=== PATIENT | male | born 1985 | race Caucasian/White ===

== ENCOUNTER 2021-07-20 23:13 | Inpatient (IN) | payer OTHER, SELFPAY ==
--- NOTE | 2021-07-20 23:22 | XRR_ITS ---
The PROCEDURE INFORMATION: Exam: XR Chest Exam date and time: 07/20/2021 11:22 PM Age: 36 years old Clinical indication: Device placement; Ett placement (vent status); Patient HX: Check for et and og placement S/P intubation upon EMS arrival. No further history. ; Additional info: Post intubation, AMS TECHNIQUE: Imaging protocol: XR of the chest. Views: 1 view. COMPARISON: No relevant prior studies available. FINDINGS: Tubes, catheters and devices: There is an endotracheal tube present, with distal tip 3 cm above the yaz. There is an enteric tube present with distal portion in the stomach. Lungs: Low lung volumes bilaterally. Nonspecific ground-glass infiltrates noted bilaterally, left worse than right. Pleural spaces: No pleural effusion. No pneumothorax. Heart/Mediastinum: No cardiomegaly. Bones/joints: Minimal scoliosis of the thoracic spine. XR/XR chest 1V portable [id number] IMPRESSION: 1. There is an endotracheal tube present, with distal tip 3 cm above the yaz. 2. There is an enteric tube present with distal portion in the stomach. 3. Low lung volumes bilaterally. Nonspecific ground-glass infiltrates noted bilaterally, left worse than right.
--- NOTE | 2021-07-20 23:22 | CTR_ITS ---
PROCEDURE INFORMATION: Exam: CT Head Without Contrast Exam date and time: 07/20/2021 11:22 PM Age: 36 years old Clinical indication: Altered mental status/memory loss; Patient HX: Possible drug od. Unresponsive to narcan. Intubated upon EMS arrival to er. Supposed history of seizure disorder. ; Additional info: AMS TECHNIQUE: Imaging protocol: Computed tomography of the head without contrast. Radiation optimization: All CT scans at this facility use at least one of these dose optimization techniques: automated exposure control; mA and/or kV adjustment per patient size (includes targeted exams where dose is matched to clinical indication); or iterative reconstruction. COMPARISON: No relevant prior studies available. RADIATION DOSE METRICS: Total DLP (mGy-cm): 786.21 FINDINGS: Brain: Unremarkable. No hemorrhage. No significant white matter disease. No edema. Cerebral ventricles: No ventriculomegaly. Paranasal sinuses: Mild mucoperiosteal thickening in the left maxillary and bilateral ethmoid sinuses. No air-fluid levels in the sinuses. Mastoid air cells: Unremarkable as visualized. No mastoid effusion. Bones/joints: Unremarkable. No acute fracture. Soft tissues: Unremarkable. CT/CT head wo con* [id number] IMPRESSION: No acute intracranial abnormality demonstrated.
--- NOTE | 2021-07-20 23:22 | CTR_ITS ---
PROCEDURE INFORMATION: Exam: CT Cervical Spine Without Contrast Exam date and time: 07/20/2021 11:22 PM Age: 36 years old Clinical indication: Other: AMS; Patient HX: Possible drug od. Unresponsive to narcan. Intubated upon EMS arrival to er. Supposed history of seizure disorder. ; Additional info: AMS, ? trauma TECHNIQUE: Imaging protocol: Computed tomography images of the cervical spine without contrast. Radiation optimization: All CT scans at this facility use at least one of these dose optimization techniques: automated exposure control; mA and/or kV adjustment per patient size (includes targeted exams where dose is matched to clinical indication); or iterative reconstruction. COMPARISON: CT head wo con* [id number] 07/21/2021 12:15 AM RADIATION DOSE METRICS: Total DLP (mGy-cm): 1113.86 FINDINGS: Bones/joints: Vertebral body heights are preserved. No compression fractures are noted. Vertebral alignment is physiologic. Discs/Spinal canal/Neural foramina: Disc heights are preserved. No significant intervertebral disc narrowing. No spinal canal or neural foraminal stenosis. Lungs: The lung apices are unremarkable. Pleural spaces: No apical pneumothorax demonstrated. Soft tissues: The soft tissues appear unremarkable. CT/CT cervical spin wo con* [id number] IMPRESSION: No acute abnormality of the cervical spine demonstrated.
[2021-07-20 23:24] VITALS: BP 199/115; PULSE 110; RESP 35; O2SAT 95; BMI 36.9
[2021-07-20] MEDS: succinylcholine 20 mg/mL SDV 10mL IVP (23:25)
[2021-07-20] MEDS: vecuronium 10 mg SDV IVP (23:30)
[2021-07-20 23:41] LABS: Basophils # 0.1 10^3/uL (0.0-0.1); Basophils % 0.3 %; Eosinophils # 0.1 10^3/uL (0.0-0.8); Eosinophils % 0.4 %; Hematocrit 46.7 % (42.0-52.0); Hemoglobin 14.9 g/dL (11.7-16.6); Lymphocytes % 10.6 %; Mean Corpuscular HGB Conc 31.9 g/dL (30.0-36.0); Mean Corpuscular Hemoglobin 31.3 pg (28.0-34.0); Mean Corpuscular Volume 98.1 fl (80-94); Mean Platelet Volume 10.8 fL (7.4-10.4); Monocytes # 0.8 10^3/uL (0.2-0.9); Monocytes % 2.9 %; Neutrophils # 24.25 10^3/uL (1.8-7.7); Neutrophils % 84.9 %; Nucleated Red Blood Cells % 0 %; Platelet Count 319 10^3/cmm (130-400); Red Blood Count 4.76 10^6/uL (4.1-5.3); Red Cell Distribution Width 12.9 % (12.1-15.1); White Blood Count 28.6 10^3/uL (4.0-10.0)
[2021-07-20] MEDS: propofol 1,000 MG/100 ML INJ 6.8 MG IV (23:50)
[2021-07-20] MEDS: midazolam 1 mg/mL INJ 2 mL 4 MG IVP (23:52)
[2021-07-20 23:53] VITALS: PULSE 113; RESP 16; O2SAT 100
[2021-07-20 23:57] LABS: Troponin(5th) Baseline 75 ng/L (0-15)
[2021-07-21] VITALS (71 sets, daily range): BP systolic 104–177; BP diastolic 54–106; PULSE 82–146; RESP 13–23; TEMP 37.2–38; O2SAT 95–100
[2021-07-21 00:05] LABS: Lactate (Lactic Acid level) 4.8 mmol/L (0.5-2.2)
--- NOTE | 2021-07-21 00:17 | W.ED.NEUROSD ---
HPI - Neuro Symptoms/Deficit General: Chief Complaint: Neuro Symptoms/Deficit Stated Complaint: od Time Seen by Provider: 07/20/21 23:15 History of Present Illness: 36-year-old male presenting by ambulance unresponsive to the ER. They were called out to the home for an alleged overdose. EMS found the patient with a pulse ox of 51% on room air, not responsive. He had pinpoint pupils and was given intranasal Narcan, after which he began to arouse to some degree. OPA was placed with significant improvement in his oxygenation on nonrebreather. The patient remained unresponsive for most of the trip here, but with stable vital signs. Here, he is not responding to noxious stimuli, eyes are closed, pupils are pinpoint. Review of Systems General: Reports: ROS unobtainable due to medical condition and ROS unobtainable due to mental status Physical Exam Const: EXAM LIMITATIONS: altered mental status GENERAL APPEARANCE: ill appearing and appears older than stated age ORIENTATION/CONSCIOUSNESS: Yes patient obtunded HENMT: COMMON NORMALS: normocephalic, atraumatic and Normal external nose present HEAD & SCALP: normocephalic and atraumatic FACE & SINUS: normal facial exam NOSE: Normal external nose present and Normal nares present MOUTH: Normal oral and palatal mucosa present Eye: COMMON NORMALS: conjunctivae normal GENERAL EYE: decreased light reflex CONJUNCTIVA: Yes conjunctivae normal PUPIL: Yes Pinpoint pupils DIRECT OPHTHALMOSCOPY: Yes decreased light reflex Chest: COMMONS NORMALS: normal inspection of the chest and normal palpation of entire chest wall Resp: EFFORT & INSPECTION: Yes abnormal respiratory pattern, Yes respiratory distress and Yes retractions AUSCULTATION: rhonchi and diminished lung sounds Cardio: COMMON NORMALS: regular rhythm RATE: tachycardic RHYTHM: regular rhythm GI: COMMON NORMALS: Normal to inspection, nondistended, normoactive bowel sounds present and Soft to palpation PALPATION: Yes Soft to palpation Extremity: COMMON NORMALS: capillary refill normal Neuro: KRYSTLE COMA SCALE: document GCS findings [place] coma scale eye opening: None Krystle coma scale verbal response: Sounds [place] coma scale motor response: Normal flexion [place] coma scale total score: 7 SENSORIUM/ORIENTATION: Yes obtunded Skin: COMMON NORMALS: no wounds Procedures Intubation Time out performed: No sedative: Etomidate Mg Given: 30 paralytic: Succinylcholine Mg Given: 200 Laryngoscope: Christina (4) ET Tube Size: 8 ET Tube Uncuffed: No Tube Secured Depth (cm): 24 Tube Secured Location: lips Tube Placement Confirmation: visualized tube passing through cords, equal breath sounds bilaterally and confirmation by capnometry Patient Tolerated Procedure: well and no complications Intubation Complications: none Course Consultations: Consultation #1: rhina Time: : Vital Signs: Vital signs: Vital Signs Pulse Rate 100 07/21/21 00:12 Respiratory Rate 16 07/21/21 03:08 Blood Pressure 143/84 07/21/21 00:12 Pulse Oximetry 100 07/21/21 03:08 MDM - Neuro Symptoms/Deficit Medical Decision Making 36-year-old obtunded male, essentially minimally responsive on presentation. Pinpoint pupils. 1 mg of Narcan given. Following this, pupils widened, but the patient did not begin to respond appropriately. In fact, he began to shake and posture to some degree. Oxygen sats were 100% on nonrebreather oxygenation, but the patient was not maintaining his airway well at all. He was intubated using RSI technique emergently with no complication. Urine drug screen is positive for opiates. Benzodiazepines may be due to Versed given for sedation postintubation. Patient on a ventilator, sedated with propofol. CT of the head is negative. CT of the C-spine is negative. Chest x-ray shows ET tube in proper position with bilateral basilar groundglass infiltrates. COVID-19 PCR is pending. White blood cell count is 28.6. BMP is normal. Lactic is elevated at 4.8. His first troponin was 75 with an increase of 2 hours of 60. This is likely due to anoxic injury versus true cardiac ischemia due to coronary disease, as the patient has essentially a normal EKG ST segment daniels. Blood gas taken well over an hour after intubation and still shows respiratory acidosis with a PCO2 of 48. It was likely much higher on arrival. He will go to the ICU. Current blood pressure 143/84, heart rate 90 sinus, saturations 99% on the ventilator. Lab Data : 07/20/21 23:26 07/20/21 23:53 Radiology Impressions Cervical Spine CT 07/20/21 23:22 IMPRESSION: No acute abnormality of the cervical spine demonstrated. Chest X-Ray 07/20/21 23:22 IMPRESSION: 1. There is an endotracheal tube present, with distal tip 3 cm above the yaz. 2. There is an enteric tube present with distal portion in the stomach. 3. Low lung volumes bilaterally. Nonspecific ground-glass infiltrates noted bilaterally, left worse than right. Head CT 07/20/21 23: IMPRESSION: No acute intracranial abnormality demonstrated. Laboratory Results WBC 28.6 10^3/uL (4.0-10.0) H 07/20/21 23: RBC 4.76 10^6/uL (4.1-5.3) 07/20/21 23: Hgb 14.9 g/dL (11.7-16.6) 07/20/21 23: Hct 46.7 % (42.0-52.0) 07/20/21 23: MCV 98.1 fl (80-94) H 07/20/21 23: MCH 31.3 pg (28.0-34.0) 07/20/21 23: MCHC 31.9 g/dL (30.0-36.0) 07/20/21 23: RDW 12.9 % (12.1-15.1) 07/20/21 23: Plt Count 319 10^3/cmm (130-400) 07/20/21 23: MPV 10.8 fL (7.4-10.4) H 07/20/21 23: Neut % (Auto) 84.9 % 07/20/21 23: Lymph % (Auto) 10.6 % 07/20/21 23: [place] % (Auto) 2.9 % 07/20/21 23: Eos % (Auto) 0.4 % 07/20/21 23: Baso % (Auto) 0.3 % 07/20/21 23: Neut # (Auto) 24.25 10^3/uL (1.8-7.7) H 07/20/21 23: Lymph # (Auto) 3.0 10^3/uL (0.8-4.8) 07/20/21 23: [place] # (Auto) 0.8 10^3/uL (0.2-0.9) 07/20/21 23: Eos # (Auto) 0.1 10^3/uL (0.0-0.8) 07/20/21 23:26 Baso # (Auto) 0.1 10^3/uL (0.0-0.1) 07/20/21 23:26 Nucleated RBC % (auto) 0 % 07/20/21 23:26 Nucleated RBCs # 0.0 /100WBC 07/20/21 23:26 ESR 13 mm/hr (0-10) H 07/20/21 23:53 Specimen Type Arterial 07/21/21 01:06 Sample Site Radial, right 07/21/21 01:06 ABG pH 7.34 (7.35-7.45) L 07/21/21 01:06 ABG pCO2 48.0 mmHg (35-45) H 07/21/21 01:06 ABG pO2 164.0 mmHg (80.0-100.0) H 07/21/21 01:06 ABG HCO3 25.8 mmol/L (22-26) 07/21/21 01:06 ABG Base Excess -0.6 mmol/L (-2.0-2.0) 07/21/21 01:06 Rudy Test Pos 07/21/21 01:06 Hematocrit 42.6 % (42-52) 07/21/21 01:06 O2 Delivery Device Vent 07/21/21 01:06 FiO2 80.0 % 07/21/21 01:06 PEEP 8.0 cmH20 07/21/21 01:06 Grocery Sacker ID Rosemarya 07/21/21 01:06 Sodium 139 mmol/L (136-145) 07/20/21 23:53 Potassium 4.3 mmol/L (3.5-5.1) 07/20/21 23:53 Chloride 106 mmol/L (98-107) 07/20/21 23:53 Carbon Dioxide 24 mmol/L (22-29) 07/20/21 23:53 Anion Gap 13.3 (5-19) 07/20/21 23:53 BUN 12 mg/dL (6-20) 07/20/21 23:53 Creatinine 1.1 mg/dL (0.7-1.2) 07/20/21 23:53 GFR Calculation 75.3 mL/min (90-130) L 07/20/21 23:53 Glucose 93 mg/dL (65-115) 07/20/21 23:53 Calculated Osmolality 287 mOsm/kg (285-295) 07/20/21 23:53 Lactate 4.8 mmol/L (0.5-2.2) H* 07/20/21 23:28 Calcium 8.9 mg/dL (8.5-10.5) 07/20/21 23:53 Total Bilirubin 0.2 mg/dL (0.15-1.2) 07/20/21 23:53 AST 38 U/L (0-40) 07/20/21 23:53 ALT 36 U/L (0-41) 07/20/21 23:53 Alkaline Phosphatase 78 IU/L (40-130) 07/20/21 23:53 Troponin T Baseline 75 ng/L (0-15) H 07/20/21 23:28 Troponin T 120 Minute 135.2 ng/L (0-15) H 07/21/21 01:20 Delta Troponin T 60.2 ABS# (0-10) H* 07/21/21 01:20 C-Reactive Protein 41.7 mg/L (0.0-4.9) H 07/20/21 23:53 Total Protein 7.0 g/dL (6.6-8.7) 07/20/21 23:53 Albumin 4.2 g/dL (3.5-5.2) 07/20/21 23:53 Globulin 2.8 g/dL (1.3-4.6) 07/20/21 23:53 Procalcitonin 0.17 ng/mL (0-0.5) 07/20/21 23:53 TSH 1.54 uIU/mL (0.27-4.20) 07/20/21 23:53 Urine Color Yellow (Yellow) 07/20/21 23:54 Urine Appearance Clear (CLEAR) 07/20/21 23:54 Urine pH 6 (5-7) 07/20/21 23:54 Ur Specific [place] 1.010 (1.005-1.030) 07/20/21 23:54 Urine Protein 2+ (Negative) H 07/20/21 23:54 Urine Glucose (UA) 2+ (Normal) H 07/20/21 23:54 Urine Ketones Negative (Negative) 07/20/21 23:54 Urine Blood 2+ (Negative) H 07/20/21 23:54 Urine Nitrate Negative (Negative) 07/20/21 23:54 Urine Bilirubin Neg (Negative) 07/20/21 23:54 Urine Urobilinogen Norm mg/dL (Negative) 07/20/21 23:54 Ur Leukocyte Esterase Negative (Negative) 07/20/21 23:54 Urine RBC 10-15 /hpf (0-2) H 07/20/21 23:54 Urine WBC 15-25 /hpf (0-5) H 07/20/21 23:54 Ur Squamous Epith Cells 0-4 /hpf (0-5) H 07/20/21 23:54 Amorphous Sediment 2+ /hpf 07/20/21 23:54 Urine Bacteria 1+ /hpf (NONE) H 07/20/21 23:54 Hyaline Casts 0-4 /lpf H 07/20/21 23:54 Coarse Granular Casts 0-4 /lpf H 07/20/21 23:54 Urine Mucus 1+ /hpf 07/20/21 23:54 Salicylates < 0.3 mg/dL (3-10) L 07/20/21 23:53 Urine Opiates Screen Positive ng/mL (Negative) H 07/20/21 23:54 Acetaminophen < 5.0 ug/mL (10-30) L 07/20/21 23:53 Ur Barbiturates Screen Negative ng/mL (Negative) 07/20/21 23:54 Ur Phencyclidine Scrn Negative ng/mL (Negative) 07/20/21 23:54 Ur Amphetamines Screen Negative ng/mL (Negative) 07/20/21 23:54 U Benzodiazepines Scrn Positive ng/mL (Negative) H 07/20/21 23:54 Urine Cocaine Screen Negative ng/mL (Negative) 07/20/21 23:54 U Marijuana (THC) Screen Negative ng/mL (Negative) 07/20/21 23:54 Ethyl Alcohol < 10 mg/dL (0-10) 07/20/21 23:53 Serum Ketones Negative (Negative) 07/20/21 23:53 Coronavirus 229E (PCR) Not detected (NOT DETECT) 07/21/21 00:03 SARS-CoV-2 (PCR) Not detected (NOT DETECT) 07/21/21 00:03 Critical Care Time Critical Care Time: Critical Care Time: Yes Total Critical Care Time: 36 Attestation: This case had a high probability of a clinically significant, sudden, or life threatening deterioration of this patient's condition which required my full and direct attention, intervention and personal management. This is independent of procedures performed including intubation. Discharge Plan Discharge Patient Disposition: Admitted As Inpatient Admit Provider: Maikol Remdond Clinical Impression: Acute hypoxemic respiratory failure, Narcotic overdose Condition: Stable Coding Level of Care Code ED [employer] Manager for g Fwd Exam Comprehensive
[2021-07-21 00:25] LABS: Alanine Aminotransferase 36 U/L (0-41); Albumin Level 4.2 g/dL (3.5-5.2); Alkaline Phosphatase 78 IU/L (40-130); Aspartate Amino Transferase 38 U/L (0-40); Blood Urea Nitrogen 12 mg/dL (6-20); Calcium 8.9 mg/dL (8.5-10.5); Carbon Dioxide 24 mmol/L (22-29); Chloride 106 mmol/L (98-107); Globulin 2.8 g/dL (1.3-4.6); Glomerular Filtration Rate 75.3 mL/min (90-130); Glucose 93 mg/dL (65-115); Osmolality Calculated 287 mOsm/kg (285-295); Sodium 139 mmol/L (136-145); Thyroid Stimulating Hormone 1.54 uIU/mL (0.27-4.20); Total Bilirubin 0.2 mg/dL (0.15-1.2)
[2021-07-21 00:34] LABS: Acetaminophen < 5.0 ug/mL (10-30); Alcohol Level < 10 mg/dL (0-10); Salicylate < 0.3 mg/dL (3-10)
[2021-07-21 00:40] LABS: Ketone (Acetest) Serum Negative (Negative)
[2021-07-21 00:40] LABS: Add Urine Microscopic? YES; Bilirubin Urine Neg (Negative); Blood Urine 2+ (Negative); Glucose Urine UA 2+ (Normal); Ketones Urine Negative (Negative); Leukocyte Esterase Urine Negative (Negative); Nitrate Urine Negative (Negative); Protein Urine 2+ (Negative); Urine Appearance Clear (CLEAR); Urine Color Yellow (Yellow); Urobilinogen Urine Norm (Negative); pH Urine 6 (5-7)
[2021-07-21 00:49] LABS: Anion Gap 13.3 (5-19); Potassium 4.3 mmol/L (3.5-5.1)
[2021-07-21 00:51] LABS: Amphetamines Screen Urine Negative (Negative); Barbiturates Screen Urine Negative (Negative); Benzodiazepines Screen Urine Positive (Negative); Cocaine Screen Urine Negative (Negative); Opiate Screen Urine Positive (Negative); PCP Screen Urine Negative (Negative); THC Screen Urine Negative (Negative)
[2021-07-21 01:00] LABS: Squamous Epithelial Cell Urine 0-4 /hpf (0-5); WBC Urine 15-25 /hpf (0-5)
[2021-07-21 01:01] LABS: Add Urine Culture? Yes; Amorphous Sediment Urine 2+ /hpf; Bacteria Urine 1+ /hpf; Coarse Granular Casts Urine 0-4 /lpf; Hyaline Casts Urine 0-4 /lpf; Mucus Urine 1+ /hpf
[2021-07-21 01:20] LABS: ABG PH Result 7.34 (7.35-7.45); Arterial Blood Gas Hematocrit 42.6 % (42-52); Base Excess ABG -0.6 mmol/L (-2.0-2.0); Blood Gas Allen Test Pos; Blood Gas Sample Site Radial, right; Blood Gas Sample Type Arterial; HCO3 ABG 25.8 mmol/L (22-26); Oxygen Device VENT
[2021-07-21 02:07] LABS: Troponin 5 2HR 135.2 ng/L (0-15); Troponin 5 2HR Delta 60.2 ABS# (0-10)
[2021-07-21] MEDS: sodium chloride 0.9% 1,000 ML 999 ML IV ×2 (02:09→04:20)
[2021-07-21 02:24] LABS: Adenovirus Not Detected (NOT DETECT); Chlamydia Pneumoniae Not Detected (NOT DETECT); Coronavirus 229E,HKU1,NL63,OC4 Not Detected (NOT DETECT); Human Metapneumovirus Not Detected (NOT DETECT); Human Rhinovirus/Enterovirus Not Detected (NOT DETECT); Influenza A Not Detected (NOT DETECT); Influenza A H1 Not Detected (NOT DETECT); Influenza A H1-2009 Not Detected (NOT DETECT); Influenza A H3 Not Detected (NOT DETECT); Influenza B Not Detected (NOT DETECT); Mycoplasma Pneumoniae Not Detected (NOT DETECT); Parainfluenza Virus Type 1 Not Detected (NOT DETECT); Parainfluenza Virus Type 2 Not Detected (NOT DETECT); Parainfluenza Virus Type 3 Not Detected (NOT DETECT); Parainfluenza Virus Type 4 Not Detected (NOT DETECT); Respiratory Syncytial Virus A Not Detected (NOT DETECT); Respiratory Syncytial Virus B Not Detected (NOT DETECT); SARS-COV-2 Not Detected (NOT DETECT)
[2021-07-21] MEDS: piperacillin-tazobactam 4.5 GM in sodium chloride 0.9% (plus) 50 ML IV (02:29)
--- NOTE | 2021-07-21 02:53 | P.HP_ITS ---
Providers/Chief Complaint Chief Complaint: od History of Present Illness Jaquan Aguilar is a 36 year old male no significant past medical history, who presents to [facility] for concerns for opiate overdose. Currently patient is intubated, sedated, mechanical ventilation, no family at bedside for further history taking. According to ER staff EMS was called out to patient's home, due to unresponsiveness, alleged overdose, when EMS arrived, patient was nonresponsive, pulse ox was 51% on room air, pinpoint pupils, given intranasal Narcan, he did arouse to some degree, was placed on nonrebreather, and transported to [facility], vitals were stable during transport, in the emergency room, he was not responding to noxious stimuli, pupils remain pinpoint, given 1 mg of Narcan, pupils widened, did not begin to respond, he started to shake diffusely, was subsequently intubated by ER physician. WBC 28.6, neutrophilia, lactate of 1.8, baseline troponin 75, with a delta troponin of 60, positive for opiates, and benzos. Unable to obtain a medical history, surgical history, social history due to intubation and sedation Review of Systems General: Reports: ROS unobtainable due to mental status Vitals/I&O/Wt Last Vital Signs Pulse 100 07/21/21 00:12 Resp 17 07/21/21 00:12 BP 143/84 07/21/21 00:12 Pulse Ox 100 07/21/21 00:12 Weight last 48 hrs Weight 113.398 kg Weight 113.398 kg Physical Exam Const: COMMON NORMALS: no acute distress HENMT: COMMON NORMALS: normocephalic HEAD & SCALP: normocephalic Eye: COMMON NORMALS: no scleral icterus OTHER: Pupils are pinpoint bilaterally, minimally reactive to light Neck/C-Spine: COMMON NORMALS: no JVD Lymph: LYMPHATIC: no lymphadenopathy noted Chest: COMMONS NORMALS: normal inspection of the chest Resp: COMMON NORMALS: normal respiratory effort, No retractions, No use of accessory muscles and clear to auscultation bilaterally AUSCULTATION: clear to auscultation bilaterally Cardio: COMMON NORMALS: regular rate, regular rhythm, S1 normal heart sound present and S2 normal heart sound present RATE: regular rate RHYTHM: regular rhythm HEART SOUNDS: S1 normal heart sound present and S2 normal heart sound present GI: COMMON NORMALS: Normal to inspection, nondistended, normoactive bowel sounds present, Soft to palpation, non-tender, No hepatosplenomegaly present, no masses and no bruits PALPATION: Yes Soft to palpation and Yes No hepatos plenomegaly present Extremity: COMMON NORMALS: capillary refill normal, no clubbing, cyanosis or edema, no calf tenderness and no pedal edema Neuro: OTHER: Intubated, sedated Urinary Catheter Management: Leon: Cath Placed During This Visit: yes Urinary Catheter Date of Insertion: 07/21/21 Urinary Catheter Time of Insertion: 23:40 Data : 07/20/21 23:26 07/20/21 23:53 A&P Assessment and plan (1) Acute hypoxemic respiratory failure: Status: Acute (2) Narcotic overdose: Status: Acute (3) Acute encephalopathy: Status: Acute (4) NSTEMI (non-ST elevated myocardial infarction): Status: Acute (5) Leukocytosis: Status: Acute (6) Lactic acidosis: Status: Acute Plan Acute hypoxic respiratory failure secondary to opiate overdose -Intubated, sedated -Minimize tidal volume, minimize FiO2 -Continue propofol, fentanyl for sedation -Spontaneous breathing trial -Monitor mentation closely -Zosyn for aspiration pneumonia -Full code -Heparin for DVT prophylaxis -Protonix for GI prophylaxis Acute encephalopathy -Secondary to opiate overdose, hypoxia -We will need to monitor closely for anoxic brain injury, as patient was down for some period of time his pulse ox on arrival was 71% Lactic acidosis -Likely secondary to opiate overdose, IV fluids NSTEMI -Baseline troponin 75, 120-minute 135.2, down to 60.2 -No acute ST-T wave changes on EKG -Likely secondary opioid overdose -However cannot rule out underlying cardiac etiology -Aspirin, statin, heparin drip -Cardiac echo ERICKA, CPK, IV fluids Attestations Medical Necessity Statement*: Patient requires hospitalization, inpatient, greater than 2 midnights, for opiate overdose, altered mental status, acute respiratory failure Critical Care Time: 55 Coding Level of Care Code Acute Operations Leader for [facility] Manas Diagnoses Acute hypoxemic respiratory failure J96.01 Narcotic overdose T40.601A Acute encephalopathy G93.40 NSTEMI (non-ST elevated myocardial infarction) I21.4 Leukocytosis D72.829 Lactic acidosis E87.2
[2021-07-21 03:23] LABS: Erythrocyte Sedimentation Rate 13 mm/hr (0-10)
[2021-07-21 03:46] LABS: C Reactive Protein 41.7 mg/L (0.0-4.9)
[2021-07-21 03:54] LABS: Procalcitonin 0.17 ng/mL (0-0.5)
--- NOTE | 2021-07-21 05:22 | ECG_ITS ---
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 Measurements Intervals [place] Rate: 87 P: 55 UT: 140 QRS: 49 QRSD: 110 T: 13 QT: 395 QTc: 477 Interpretive Statements SINUS RHYTHM No previous ECG available for comparison Electronically Signed On 07-23-2021 9:04:11 HOSPICE CARE CONSULTANT by Abdiaziz Farr M.D. [email or web address]
--- NOTE | 2021-07-21 05:55 | PC.NURSE ---
Upon moving patient to ICU , Pt. began waking from sedation. Pt. started on fentanyl, with 100mcg bolus from bag per Dr. Farrell.
--- NOTE | 2021-07-21 06:00 | PC.NURSE ---
Admission Note Patient brought to ICU 5 by TOBACCO ROLLER and RT. Patient's eyes are open and he is coughing against the ventilator. Increased sedation gtt's at this time. Patient does not respond to commands or painful stimuli. All vital signs are stable at this time. No s/s distress are noted.
[2021-07-21] MEDS: dextrose 5%-sod chloride 0.9% 1,000 ML 75 ML IV (06:11)
[2021-07-21] MEDS: pantoprazole 40 mg SDV IVP (06:13)
[2021-07-21 06:34] LABS: ABG PCO2 42.3 mmHg (35-45); ABG PH Result 7.41 (7.35-7.45); Arterial Blood Gas Hematocrit 41.1 % (42-52); Base Excess ABG 1.8 mmol/L (-2.0-2.0); Blood Gas Allen Test Pos; Blood Gas Operator Identificat JB; Blood Gas Sample Site Radial, right; Blood Gas Sample Type Arterial; HCO3 ABG 26.8 mmol/L (22-26); Oxygen Device VENT
[2021-07-21] MEDS: ipratropium-albuterol 3 mL Neb INHALATION ×2 (08:31→20:19)
[2021-07-21] MEDS: aspirin 81 mg EC Tablet PO (08:33)
[2021-07-21] MEDS: piperacillin-tazobactam 3.375 GM in sodium chloride 0.9% (plus) 50 ML IV ×2 (08:33→16:18)
[2021-07-21] MEDS: propofol 1,000 MG/100 ML INJ 13.61 MG IV (08:38)
[2021-07-21 11:04] LABS: Basophils % 0.3 %; Eosinophils # 0.2 10^3/uL (0.0-0.8); Eosinophils % 1.9 %; Hematocrit 39.8 % (42.0-52.0); Hemoglobin 12.7 g/dL (11.7-16.6); Lymphocytes # 1.8 10^3/uL (0.8-4.8); Lymphocytes % 21.9 %; Mean Corpuscular HGB Conc 31.9 g/dL (30.0-36.0); Mean Corpuscular Hemoglobin 32.1 pg (28.0-34.0); Mean Corpuscular Volume 100.5 fl (80-94); Mean Platelet Volume 11.1 fL (7.4-10.4); Monocytes # 0.7 10^3/uL (0.2-0.9); Monocytes % 8.1 %; Neutrophils # 5.38 10^3/uL (1.8-7.7); Neutrophils % 67.4 %; Nucleated Red Blood Cells % 0 %; Platelet Count 219 10^3/cmm (130-400); Red Blood Count 3.96 10^6/uL (4.1-5.3); Red Cell Distribution Width 13.1 % (12.1-15.1)
[2021-07-21 11:20] LABS: Troponin 5 6HR 49.25 ng/L (0-15)
[2021-07-21 11:28] LABS: Anion Gap 14.7 (5-19); Blood Urea Nitrogen 8 mg/dL (6-20); Calcium 8.1 mg/dL (8.5-10.5); Carbon Dioxide 24 mmol/L (22-29); Chloride 107 mmol/L (98-107); Glomerular Filtration Rate 151.6 mL/min (90-130); Glucose 99 mg/dL (65-115); Osmolality Calculated 292 mOsm/kg (285-295); Potassium 3.7 mmol/L (3.5-5.1); Sodium 142 mmol/L (136-145)
[2021-07-21 11:51] LABS: Troponin 5 6HR Delta -25.5 ng/L (0-12)
[2021-07-21 11:54] LABS: Creatine Phosphokinase 384 U/L (39-308)
[2021-07-21] MEDS: enoxaparin 120 mg/0.8 mL Syringe 110 MG SUBCUT (14:43)
[2021-07-21] MEDS: naloxone 0.4 mg/ml SDV IVP (14:43)
[2021-07-21 19:38] LABS: Prolactin 28.84 ng/mL (4.0-15.2)
[2021-07-21] MEDS: atorvastatin 40 mg Tablet PO (20:43)
[2021-07-22] VITALS (49 sets, daily range): BP systolic 111–182; BP diastolic 63–111; PULSE 88–140; RESP 11–32; TEMP 36.7–38; O2SAT 91–100
--- NOTE | 2021-07-22 00:30 | PC.NURSE ---
Change in Condition Patient noted be diaphoretic upon assessment, heart rate in the 150's. Called hospitalist, gave verbal orders to restart Propofol drip and titrate as needed.
[2021-07-22 00:40] LABS: Glucose Point of Care 182 mg/dL (70-110)
[2021-07-22] MEDS: enoxaparin 120 mg/0.8 mL Syringe 110 MG SUBCUT (01:29)
[2021-07-22] MEDS: piperacillin-tazobactam 3.375 GM in sodium chloride 0.9% (plus) 50 ML IV ×2 (01:29→07:30)
[2021-07-22 04:46] LABS: Basophils % 0.1 %; Hematocrit 38.5 % (42.0-52.0); Hemoglobin 12.6 g/dL (11.7-16.6); Lymphocytes # 0.9 10^3/uL (0.8-4.8); Lymphocytes % 8.1 %; Mean Corpuscular HGB Conc 32.7 g/dL (30.0-36.0); Mean Corpuscular Hemoglobin 31.4 pg (28.0-34.0); Mean Platelet Volume 11.1 fL (7.4-10.4); Monocytes # 0.5 10^3/uL (0.2-0.9); Monocytes % 4.9 %; Neutrophils # 9.43 10^3/uL (1.8-7.7); Neutrophils % 86.5 %; Nucleated Red Blood Cells % 0 %; Platelet Count 226 10^3/cmm (130-400); Red Blood Count 4.01 10^6/uL (4.1-5.3); Red Cell Distribution Width 12.8 % (12.1-15.1); White Blood Count 10.9 10^3/uL (4.0-10.0)
[2021-07-22 04:47] LABS: INR 1.07 (0.8-1.2)
--- NOTE | 2021-07-22 04:50 | PC.NURSE ---
Shift Note Patient had an uneventful shift. He remains intubated, ventilator settings are as follows; mode-CMV, FiO2-30%, VT-500, PEEP-8, rate-16. Zosyn and Propofol are infusing per protocol, please see MAR for infusion rates. Leon catheter drained 600 mls of urine overnight. No wounds or skin issues noted and OG tube remains clamped at this time. Frequently turned and repositioned patient with assistance from staff.
[2021-07-22 05:07] LABS: Lactic Sepsis W/Reflex 1.1 mmol/L (0.5-2.2)
[2021-07-22 05:12] LABS: Alanine Aminotransferase 27 U/L (0-41); Albumin Level 3.8 g/dL (3.5-5.2); Alkaline Phosphatase 56 IU/L (40-130); Anion Gap 12.2 (5-19); Aspartate Amino Transferase 26 U/L (0-40); Blood Urea Nitrogen 9 mg/dL (6-20); Calcium 9.7 mg/dL (8.5-10.5); Carbon Dioxide 23 mmol/L (22-29); Chloride 105 mmol/L (98-107); Globulin 2.8 g/dL (1.3-4.6); Glomerular Filtration Rate 187.1 mL/min (90-130); Glucose 168 mg/dL (65-115); Magnesium 1.7 mg/dL (1.7-2.3); NT Pro B Type Natriuretic Pept 200 pg/mL (0-125); Osmolality Calculated 285 mOsm/kg (285-295); Phosphorus 1.6 mg/dL (2.5-4.5); Potassium 4.2 mmol/L (3.5-5.1); Sodium 136 mmol/L (136-145); Thyroid Stimulating Hormone 0.21 uIU/mL (0.27-4.20); Total Bilirubin 0.3 mg/dL (0.15-1.2); Total Protein 6.6 g/dL (6.6-8.7)
[2021-07-22] MEDS: pantoprazole 40 mg SDV IVP (05:13)
--- NOTE | 2021-07-22 06:00 | USCV_ITS ---
Jaquan Aguilar Age: 36 Gender: M : 1985 Exam Date: 07/22/2021 06:16 Ordering Phys: Maikol Redmond MD Technologist: Sravani Duke Exam Location: [facility] Indication: NSTEMI BP: 178 / 92 HR: 113 Rhythm: Sinus Technical Quality: Adequate MEASUREMENTS (Male / Female) Normal Values 2D ECHO LV Diastolic Diameter PLAX 4.6 cm 4.2 - 5.9 / 3.9 - 5.3 cm LV Systolic Diameter PLAX 2.6 cm LV Chamber Size 4.1 cm IVS Diastolic Thickness 1.0 cm 0.6 - 1.0 / 0.6 - 0.9 cm IVS Systolic Thickness 1.3 cm LVPW Diastolic Thickness 1.3 cm 0.6 - 1.0 / 0.6 - 0.9 cm LVPW Systolic Thickness 1.4 cm RV Chamber Size 4.0 cm LVOT Diameter 2.1 cm LV Ejection Fraction 2D Teich 74.9 % LV Ejection Fraction MOD 2C 51.6 % LV Ejection Fraction 2C AL 50.1 % LA Diameter 3.0 cm LA Width 3.2 cm LA Height 4.3 cm RA Width 4.1 cm RA Height 4.5 cm Aorta at Sinotubular Diameter 3.3 cm M-MODE Aortic Annulus Diameter 3.6 cm LA Ao Ratio MM 1.0 MV E Point Septal Separation 0.1 cm DOPPLER AV Peak Velocity 205.0 cm/s LVOT Peak Velocity 138.0 cm/s AV Area Cont Eq vti 2.4 cm squared AV Area Cont Eq pk 2.3 cm squared MV Area PHT 8.1 cm squared Mitral E to A Ratio 0.9 MV E' Velocity 52.5 cm/s Mitral E to MV E' Ratio 5.7 Mitral E to LV E' Lateral Ratio 4.5 Mitral E to LV E' Septal Ratio 7.8 TR Peak Velocity 176.4 cm/s TR Peak Gradient 12.4 mmHg TR Mean Velocity 136.2 cm/s TR Mean Gradient 8.0 mmHg TR Velocity Time Integral 38.2 cm TV Peak E Velocity 76.0 cm/s Right Atrial Pressure 15.0 mmHg Pulmonary Artery Systolic Pressu 27.4 mmHg PV Peak Velocity 108.0 cm/s RV Acceleration Time 0.2 s RV Ejection Time 0.3 s RV AcT/ET 0.5 FINDINGS Left Ventricle Normal left ventricular size. LV systolic function is normal with EF of 60-65%. No regional wall motion abnormalities. Diastolic function is indeterminate because of tachycardia Right Ventricle The right ventricle is normal in size and function. Right Atrium The right atrium is normal in size. Left Atrium The left atrium is normal in size. Mitral Valve Structurally normal mitral valve without significant stenosis or prolapse. There is no mitral regurgitation. Aortic Valve Structurally normal aortic valve without significant sclerosis or stenosis. There is no aortic regurgitation. Tricuspid Valve Structurally normal tricuspid valve without significant stenosis. Mild tricuspid regurgitation. Pulmonary artery systolic pressure is normal. Pulmonic Valve Structurally normal pulmonic valve without significant stenosis. There is no pulmonic regurgitation. Pericardium Normal pericardium without effusion. Aorta Normal ascending aorta dimension. CONCLUSIONS LV systolic function is normal with EF of 60-65% Diastolic function is indeterminate because of tachycardia No significant valvular heart disease noted Mild tricuspid regurgitation No comparison studies are available Abdiaziz Farr MD (Electronically Signed) Final Date: 22 July 2021 21:34 S
--- NOTE | 2021-07-22 07:37 | P.PN_ITS ---
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e found him obtunded when she returned from work No witnessed seizure activity at home, Vitals/I&O/Wt Last Vital Signs Temp 98.1 F 07/22/21 04:00 Pulse 111 H 07/22/21 06:00 Resp 21 H 07/22/21 06:32 BP 121/68 07/22/21 04:30 Pulse Ox 99 07/22/21 06:32 07/21/21 07/22/21 07/22/21 22:59 06:59 14:59 Intake Total 1050 / 1176.051 112.321 / 1288.372 Output Total 600 / 1600 600 / 2200 Balance 450 / -423.949 -487.679 / -911.628 Weight last 48 hrs Weight 113.398 kg Weight 113.398 kg Physical Exam Narrative: Patient was extubated this morning to nasal cannula Patient had scanning speech Able to follow commands EOMI, PERRLA Sensations intact Cerebellar signs positive Upper arm weakness, right arm choreoathetoid movement No signs of myoclonus S1, S2 sinus tachycardia Looks euvolemic Multiple skin tattoos Abdomen soft Pupils are equal and reactive Kerning's sign negative Brudzinski sign negative Patient is awake and alert oriented to time place and person Hyperreflexia 3+ Urinary Catheter Management: Leon: Cath Placed During This Visit: yes Reason for Continuing Indwelling Catheter: Accurate Measurement of Urinary Output in Critically Ill Patients Urinary Catheter Date of Insertion: 07/21/21 Urinary Catheter Time of Insertion: 23:40 Data : 07/22/21 03:45 07/22/21 03:45 Micro: Microbiology 07/21/21 09:40 Blood Culture - Preliminary Blood SPECIMEN COLLECTED 07/21/21 09:30 Blood Culture - Preliminary Blood SPECIMEN COLLECTED 07/20/21 03:41 Gram Stain - Final Sputum - Endotracheal Tube Aspirate A&P Assessment and plan (1) Breakthrough seizure: Status: Acute (2) Postictal confusion: Status: Acute (3) Choreoathetoid limb movements: Status: Acute (4) NSTEMI (non-ST elevated myocardial infarction): Status: Acute (5) UTI (urinary tract infection): Status: Acute (6) Lactic acidosis: Status: Acute (7) Acute encephalopathy: Status: Acute (8) Acute hypoxemic respiratory failure: Status: Acute Plan Patient was successfully extubated to room air this morning After extubation noticed choreoathetoid movement of right arm Gave 1 g of Keppra and 1 mg Ativan which improved his symptoms As per the family there is no history of [place]'s chorea in the family, Considering febrile events I will treat him for meningitis start ceftriaxone and vancomycin, will obtain CSF studies Yesterday received steroids for laryngeal edema treatment Patient is denying tick bite, will add doxycycline for empirical coverage Cerebellar stroke features positive, scanning speech, positive dysdiadochokinesia, We will obtain MRI tomorrow morning He did not respond very well to Narcan I highly doubt narcotic overdose Lactic acidemia likely related to seizure-like episode at home, improved Prolactin is high CK 384 Sinus tachycardia check D-dimer, continue normal saline, Speech eval today Full liquid diet for now once more awake Abnormal TSH however free T4 is normal NSTEMI: Follow-up with echo, continue therapeutic Lovenox which I would only hold for lumbar puncture, continue aspirin, hold Plavix for LP Attestations Medical Necessity Statement*: Continue ICU management Time Spent in Patient Care: 25 minutes Critical Care Time: 25 minutes Coding Level of Care Code Acute Grass Farmer for Roland Malagon Diagnoses Breakthrough seizure G40.919 Postictal confusion F05 Choreoathetoid limb movements G25.5 NSTEMI (non-ST elevated myocardial infarction) I21.4 UTI (urinary tract infection) N39.0 Lactic acidosis E87.2 Acute encephalopathy G93.40 Acute hypoxemic respiratory failure J96.01
--- NOTE | 2021-07-22 08:00 | PC.NURSE ---
recieved this am awake on vent weaned off sedation at this time to extubate doctor here exam
--- NOTE | 2021-07-22 08:27 | PC.RESP ---
pt extubated, tolerated well
[2021-07-22] MEDS: LORazepam 2 mg/mL INJ 1 mL IVP (08:43)
[2021-07-22] MEDS: doxycycline 100 MG in sodium chloride 0.9% (plus) 100 ML IV ×2 (08:46→19:52)
[2021-07-22] MEDS: FUROsemide 10 mg/mL SDV 2mL 20 MG IVP (08:48)
[2021-07-22] MEDS: folic acid 1 mg Tablet PO (09:09)
[2021-07-22] MEDS: aspirin 81 mg EC Tablet PO (09:09)
[2021-07-22] MEDS: sodium chloride 0.9% 1,000 ML 75 ML IV (09:09)
[2021-07-22] MEDS: cefTRIAXone 2,000 MG in sodium chloride 0.9% (plus) 50 ML 100 MG IV (09:28)
[2021-07-22] MEDS: cefTRIAXone 2,000 MG in sodium chloride 0.9% (plus) 100 ML 100 MG IV ×2 (09:30→20:18)
--- NOTE | 2021-07-22 10:00 | PC.NURSE ---
had episodes of tremors noted extremities with any stimulus.. more upper regions, speech jumbled responses but follows all commands no loss of conscious noted. heart rate elevated and blood pressure increased Dr Eden here witness events . Keppra started and ativan given at this time
[2021-07-22] MEDS: vancomycin 1,500 MG/300 ML PIGGYBACK 200 MG IV ×2 (10:01→17:36)
[2021-07-22 10:34] LABS: D Dimer 1.48 ug/mIFEU (0-0.59)
[2021-07-22 11:34] LABS: Free T4 Free Thyroxine 0.95 ng/dL (0.82-1.77)
[2021-07-22] MEDS: allopurinol 300 mg Tablet PO (12:11)
[2021-07-22] MEDS: metoprolol tartrate 50 mg Tablet 100 MG PO (12:11)
[2021-07-22] MEDS: LORazepam 2 mg/mL INJ 1 mL 1 MG IVP ×3 (13:24→23:10)
[2021-07-22] MEDS: lamoTRIgine 100 mg Tablet 150 MG PO ×2 (13:26→17:36)
--- NOTE | 2021-07-22 13:30 | PC.NURSE ---
had awaken more working with ot this time noted tremors return increasing with stimulus medication given and ativan repeat given after talking with doctor, family at bedside
--- NOTE | 2021-07-22 13:36 | PC.OT ---
Not seen secondary to medical procedures and changes in medical status.
--- NOTE | 2021-07-22 17:09 | NUR.SHIFT ---
Shift Note Frequent safety and comfort rounds continue.nursing care completed as indicated. Patient monitored for response to intervention and treatment for seizure like activity Education provided include ativan , keppra , and seizure. Patient registered representative understand Will continue to monitor.
[2021-07-22] MEDS: atorvastatin 40 mg Tablet PO (21:06)
[2021-07-23] VITALS (23 sets, daily range): BP systolic 118–157; BP diastolic 64–108; PULSE 81–120; RESP 11–29; TEMP 36.8; O2SAT 92–100
[2021-07-23] MEDS: vancomycin 1,500 MG/300 ML PIGGYBACK 200 MG IV ×3 (00:24→17:10)
[2021-07-23] MEDS: FUROsemide 10 mg/mL SDV 4mL 40 MG IVP (03:22)
[2021-07-23 03:50] LABS: ABG PH Result 7.47 (7.35-7.45); Arterial Blood Gas Hematocrit 43.5 % (42-52); Base Excess ABG 3.4 mmol/L (-2.0-2.0); Blood Gas Allen Test Pos; Blood Gas Sample Site Radial, right; Blood Gas Sample Type Arterial; HCO3 ABG 27.3 mmol/L (22-26); Oxygen Device ROOM AIR; PO2 ABG 64.5 mmHg (80.0-100.0)
[2021-07-23 03:59] LABS: Basophils % 0.3 %; Eosinophils # 0.1 10^3/uL (0.0-0.8); Hematocrit 41.8 % (42.0-52.0); Hemoglobin 13.6 g/dL (11.7-16.6); Lymphocytes # 2.1 10^3/uL (0.8-4.8); Lymphocytes % 20.6 %; Mean Corpuscular HGB Conc 32.5 g/dL (30.0-36.0); Mean Corpuscular Hemoglobin 31.3 pg (28.0-34.0); Mean Corpuscular Volume 96.1 fl (80-94); Monocytes # 0.8 10^3/uL (0.2-0.9); Monocytes % 7.4 %; Neutrophils # 7.12 10^3/uL (1.8-7.7); Neutrophils % 70.5 %; Nucleated Red Blood Cells % 0 %; Platelet Count 245 10^3/cmm (130-400); Red Blood Count 4.35 10^6/uL (4.1-5.3); Red Cell Distribution Width 12.8 % (12.1-15.1); White Blood Count 10.1 10^3/uL (4.0-10.0)
--- NOTE | 2021-07-23 04:00 | FL_ITS ---
WS: [id number] LUMBAR PUNCTURE CLINICAL INFORMATION: Breakthrough seizure COMPARISON: None. TECHNIQUE: Informed consent: The procedure and its potential risk and complications were discussed with the justine ent. Verbal and written consent was obtained. Timeout: A timeout was performed to confirm correct patient, procedure, and site. Patient was prepped and draped in the usual sterile fashion. Lidocaine 1% was used for local anesthes ia. Utilizing fluoroscopic guidance, a 3.5 inch 22-gauge spinal needle was advanced into the subarach noid space at L4-L5 via LEFT oblique sublaminar approach. Free flow of clear CSF was obtained. 13 cc of CSF was collected and sent the lab for further analysis. FLUOROSCOPIC TIME: 0.5 minutes. FL/FL guided lumbarpunc dx* [id number] IMPRESSION: Fluoroscopically guided lumbar puncture. No immediate complications
[2021-07-23 04:13] LABS: INR 0.98 (0.8-1.2)
[2021-07-23 04:23] LABS: Alanine Aminotransferase 24 U/L (0-41); Albumin Level 4.1 g/dL (3.5-5.2); Alkaline Phosphatase 60 IU/L (40-130); Anion Gap 14.8 (5-19); Aspartate Amino Transferase 23 U/L (0-40); Blood Urea Nitrogen 9 mg/dL (6-20); Calcium 9.1 mg/dL (8.5-10.5); Carbon Dioxide 23 mmol/L (22-29); Chloride 107 mmol/L (98-107); Globulin 2.8 g/dL (1.3-4.6); Glomerular Filtration Rate 151.6 mL/min (90-130); Glucose 100 mg/dL (65-115); Magnesium 1.9 mg/dL (1.7-2.3); Osmolality Calculated 291 mOsm/kg (285-295); Phosphorus 2.6 mg/dL (2.5-4.5); Potassium 3.8 mmol/L (3.5-5.1); Sodium 141 mmol/L (136-145); Total Bilirubin 0.3 mg/dL (0.15-1.2); Total Protein 6.9 g/dL (6.6-8.7)
[2021-07-23 04:39] LABS: Creatine Phosphokinase 431 U/L (39-308)
--- NOTE | 2021-07-23 05:00 | MR_ITS ---
WS: [id number] MRI BRAIN WITHOUT CONTRAST HISTORY: Cerebellar stroke features, seizure COMPARISON: Noncontrast CT head 07/21/2021 TECHNIQUE: Diffusion imaging, multiplanar T1, T2 and FLAIR imaging obtained. No evidence for acute infarct or hemorrhage. Daniel-white matter differentiation is normal. No remote or acute infarcts are volume loss. No significant ischemic changes or small vessel disease. Ventricles and extra-axial spaces are normal. No inferior displacement of cerebellar tonsils. The sella turcica and pituitary gland are unremarkabl e. Dural venous sinuses and [place] of [place] demonstrate no abnormality on this unenhanced studies. Paranasal sinuses: Small mucous retention cyst in the floor of the LEFT maxillary sinus. Mastoid air cells: Normal. Calvarium and scalp: Intact. MR/MR head wo con* [id number] IMPRESSION: 1. No acute infarct or chronic microvascular ischemic disease. 2. No volume loss or atrophy. No hemorrhage.
[2021-07-23] MEDS: pantoprazole 40 mg SDV IVP (05:05)
[2021-07-23] MEDS: cefTRIAXone 2,000 MG in sodium chloride 0.9% (plus) 100 ML 100 MG IV ×2 (07:26→20:23)
[2021-07-23] MEDS: doxycycline 100 MG in sodium chloride 0.9% (plus) 100 ML IV ×2 (07:26→20:24)
[2021-07-23] MEDS: folic acid 1 mg Tablet PO (08:27)
[2021-07-23] MEDS: sodium chloride 0.9% 1,000 ML 75 ML IV (08:28)
[2021-07-23] MEDS: aspirin 81 mg EC Tablet PO (08:28)
[2021-07-23] MEDS: allopurinol 300 mg Tablet PO (08:28)
[2021-07-23] MEDS: lamoTRIgine 100 mg Tablet 150 MG PO ×2 (08:28→17:10)
[2021-07-23 09:16] LABS: Vancomycin Trough 12.6 ug/mL (10-15)
--- NOTE | 2021-07-23 09:24 | PM.PN ---
Subjective Subjective: Choreoathetoid movement of right arm has improved Scanning speech slightly better as well He still shows signs of cerebellar stroke MRI pending today I have requested IR for lumbar puncture No fever since yesterday after initiation of ceftriaxone and vancomycin No significant events overnight Echo, labs reviewed, diastolic dysfunction indeterminant however EF is preserved No leukocytosis Blood cultures negative to date, On echo there is no regional wall motion abnormality, Vitals/I&O/Wt Last Vital Signs Temp 98.2 F 07/23/21 08:00 Pulse 99 07/23/21 07:00 Resp 13 07/23/21 07:00 BP 150/90 07/23/21 08:00 Pulse Ox 97 07/23/21 08:00 07/22/21 07/23/21 07/23/21 22:59 06:59 14:59 Intake Total 2610 / 3339.087 500 / 3839.087 200 / 200 Output Total 3500 / 5000 2400 / 7400 Balance -890 / -1660.913 -1900 / -3560.913 200 / 200 Weight last 48 hrs Weight 103.918 kg Physical Exam Narrative: Patient was laying supine when entered the room Able to answer my questions appropriately He is awake, alert and oriented to time place and person He does have dysdiadochokinesia, Cerebellar signs are positive however I did not check gait in the ICU Choreoathetoid movement of right arm has improved significantly, Brudzinski and Kernig signs negative Hyperreflexia EOMI, PERRLA Scanning speech seems to be getting better Patient does look fatigued and lethargic S1, S2 sinus tachycardia Hypertension Currently doing well on room air No conversational dyspnea, no audible stridor or wheezing Abdomen is soft Urinary Catheter Management: Leon: Cath Placed During This Visit: yes Reason for Continuing Indwelling Catheter: Accurate Measurement of Urinary Output in Critically Ill Patients Urinary Catheter Date of Insertion: 07/21/21 Urinary Catheter Time of Insertion: 23:40 Data : 07/23/21 03:30 07/23/21 03:30 Micro: Microbiology 07/20/21 03:41 Gram Stain - Final Sputum - Endotracheal Tube Aspirate Sputum Culture - Preliminary 07/21/21 09:40 Blood Culture - Preliminary Blood NEGATIVE TO DATE 07/21/21 09:30 Blood Culture - Preliminary Blood NEGATIVE TO DATE 07/20/21 23:54 Urine Culture - Preliminary Urine Catheterized A&P Assessment and plan (1) Abnormal urinalysis: Status: Acute (2) Choreoathetoid limb movements: Status: Acute (3) Postictal confusion: Status: Acute (4) Breakthrough seizure: Status: Acute (5) Lactic acidosis: Status: Acute (6) Leukocytosis: Status: Acute (7) NSTEMI (non-ST elevated myocardial infarction): Status: Acute (8) Acute encephalopathy: Status: Acute (9) Acute hypoxemic respiratory failure: Status: Acute (10) Narcotic overdose: Status: Acute Plan Patient is showing cereballar signs Scanning speech, dysdiadochokinesia, finger-nose test abnormal Hyperreflexia Choreoathetoid movements of right arm has improved with use of 2 antiepileptics at this point MRI head today CSF studies pending, requested IR for lumbar puncture I will keep treating patient for possible meningitis, continue ceftriaxone doxycycline and vancomycin no febrile events since yesterday We will discuss this case with Dr. Ferrera after MRI and CSF results No family history of anything Patient is denying use of recreational drugs NSTEMI: Type II MT?, Echo did not show wall motion abnormality, EF preserved No need to continue therapeutic Lovenox COVID-19 negative Abnormal UA however urine culture is negative, Hypoxic respiratory failure possible related to post ictal confusion Highly doubt narcotic overdose Patient extubated 07/22 Doing well on room air Attestations Medical Necessity Statement*: Can be transferred out of ICU Time Spent in Patient Care: Continue hospital management, is being treated for possible meningitis, Breakthrough seizures Coding Level of Care Code Acute Vp Patient for [facility] Diagnoses Abnormal urinalysis R82.90 Choreoathetoid limb movements G25.5 Postictal confusion F05 Breakthrough seizure G40.919 Lactic acidosis E87.2 Leukocytosis D72.829 NSTEMI (non-ST elevated myocardial infarction) I21.4 Acute encephalopathy G93.40 Acute hypoxemic respiratory failure J96.01 Narcotic overdose T40.601A
--- NOTE | 2021-07-23 10:16 | PC.CHAP ---
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 trying to rest Relational/Emotional Strength [] Patient feels connected with others/family/visitors/staff [] Distress [] Loneliness/isolation [] Abandonment Spirituality of Patient [] Person of Isabella [] Attends Spiritism of their Isabella [] Believes in Prayer [] Reads Bible or Taoist materials [] There are Spiritual issues to be addressed Forest Aide Interventions [x] Prayer [x] Active listening [x] Non-anxious presence [x] Spiritual/emotional support [] Crisis/trauma care [] Spiritual counseling [] Bereavement support [] Provided bereavement packet [] Provided Bible/devotional materials [] Provided toy/stuffed animal, coloring book to patient or family member [] Provided Communion [] Anointing/[place] [] Salvation [x] Completed spiritual assessment [] Other: Impact on Illness or Injury [] Angry [] Fearful [] Anxious [] Often cries [] Exhaustion [] Unable to work [] Unable to attend latter-day [] Unable to walk/stand [] Unable to read [] Unable to drive [] Unable to eat/drink [] Unable to sleep [] Unable to be with family [] Patient intubated [] Other: Summary Time spent with patient
[2021-07-23] MEDS: metoprolol tartrate 50 mg Tablet 100 MG PO (11:34)
[2021-07-23] MEDS: LORazepam 2 mg/mL INJ 1 mL 1 MG IVP ×3 (13:37→21:35)
--- NOTE | 2021-07-23 13:41 | PC.OT ---
OT EVALUATION ATTEMPTED. PATIENT IN PROCESS OF BEING TAKEN TO LUMBAR PUNCTURE. WILL ATTEMPT AGAIN TOMORROW.
[2021-07-23 15:25] LABS: CSF Mononuclear # 0.003 10^3/uL (50-90); Mononuclear WBC CSF % 100 % (50-90); Polynuclear WBC CSF % 0 % (0-10); Red Blood Cell CSF 0 10^3/uL (0-0); White Blood Cell CSF 3 /uL (0-5)
[2021-07-23 15:36] LABS: Appearance CSF CLEAR (CLEAR); Color CSF COLORLESS (COLORLESS)
[2021-07-23 15:50] LABS: Glucose CSF 64 mg/dL (40-70); Total Protein CSF 27 mg/dL (15-45)
--- NOTE | 2021-07-23 17:42 | USCV_ITS ---
Transthoracic Echo Jaquan Aguilar Age: 36 Gender: M : 1985 Exam Date: 07/23/2021 21:08 Ordering Phys: Janine Eden MD Technologist: ROBIN Exam Location: [facility] – [place] Indication: AMS/IE BP: / HR: 84 Rhythm: Atrial fibrillation Technical Quality: Adequate MEASUREMENTS (Male / Female) Normal Values 2D ECHO LV Diastolic Diameter PLAX 5.1 cm 4.2 - 5.9 / 3.9 - 5.3 cm LV Systolic Diameter PLAX 2.9 cm IVS Diastolic Thickness 1.2 cm 0.6 - 1.0 / 0.6 - 0.9 cm IVS Systolic Thickness 1.8 cm LVPW Diastolic Thickness 1.2 cm 0.6 - 1.0 / 0.6 - 0.9 cm LVPW Systolic Thickness 2.0 cm LVOT Diameter 2.5 cm LV Ejection Fraction 2D Teich 74.1 % LA Diameter 3.1 cm Aorta at Sinotubular Diameter 2.3 cm M-MODE Aortic Annulus Diameter 3.0 cm LA Ao Ratio MM 1.1 DOPPLER RV Acceleration Time 0.1 s RV Ejection Time 0.3 s RV AcT/ET 0.5 FINDINGS Left Ventricle Normal left ventricular size, systolic function and upper normal wall thickness. Left ventricular ejection fraction is visually estimated at 60 % on parasternal views. Right Ventricle Possibly normal right ventricular size and systolic function. Right Atrium Right atrium not well visualized. Left Atrium Normal left atrial size. Mitral Valve Structurally normal mitral valve. Aortic Valve Aortic valve not well visualized. Tricuspid Valve Structurally normal tricuspid valve. Trace tricuspid valve regurgitation. Pulmonic Valve Pulmonic valve not well visualized. Pericardium No pericardial effusion. Aorta Normal size aortic root and proximal ascending aorta. CONCLUSIONS 1. This is a limited study due to lack of patient cooperation. 2. Normal left ventricular size, upper normal wall thickness and normal left ventricular systolic function. Left ventricular ejection fraction is visually estimated at 60% on parasternal views. Sushila Benavidez MD (Electronically Signed) Final Date: 24 July 2021 05:29 S
[2021-07-23] MEDS: OLANZapine 10 mg VIAL IM (17:45)
--- NOTE | 2021-07-23 19:26 | PC.NURSE ---
Drug abuse: Patient's sister, Isha Pacheco [phone], calls nursing unit and tells this nurse that patient is probably experiencing withdrawals. Caller states that she has known patient all of his life and he started to abuse drugs at age 11. She states that she knows for a matter of fact that he crushes and snorts Hydrocodone 10-325, Xanax, and Naproxen. Also that he smokes 2 packs a day. She states that he has had seizures in the past due to snorting drugs. Denies knowing if he takes any other drugs but states he has in the past. Patient's primary nurse, Rick, notified.
--- NOTE | 2021-07-23 21:20 | PC.NURSE ---
Agitation During attempted ultrasound scan, patient became very agitated: talking loudly, cursing at the staff, pulling at lines, and kicking legs in bed. Multiple attempts to deescalate situation verbally with no success. Security and Dr. Rich notified of patient behavior. Patient stated I'm going to punch all of you motherfuckers and I'm going to give all of you black eyes. Patient also attempting to punch and kick staff members. During such activity, patient pulled out both peripheral IVs located in the left hand and right AC. Security and Dr. Rich at bedside; verbal orders received to administer haldol, multiple doses of ativan, and Geodon. See MAR for times, amounts, and administration of medications ordered. Additional verbal order received for bilateral wrist/ankle restraints. Restraints applied and new IV access gained in the left AC.
--- NOTE | 2021-07-23 21:30 | W.PM.BREST ---
Face to Face: Restrn/Seclusion Events leading up to initiation: Demonstrating self-destructive behavior (cutting, hitting royal etc.) Evaluation of patient's immediate situation: No signs of psychological distress Patient reaction since intervention applied: Behaviors/threats have lessened, but still present Recent labs reviewed: Yes Review of medications: Yes Patient's current medical/behavioral condition: No new concerns since last ROS Need for restraint or seclusion is: Continued Attending notified: Attending completed assessment
[2021-07-23] MEDS: haloperidol inj 5 mg/mL INJ 1 mL IM (21:35)
[2021-07-23] MEDS: LORazepam 2 mg/mL INJ 1 mL IM (21:45)
[2021-07-23] MEDS: ziprasidone 20 mg/mL SDV IM (21:50)
--- NOTE | 2021-07-23 23:05 | PC.NURSE ---
Family Update/agitation Girlfriend, Doug Flores, called and updated on patient status. Restraints, medication, and behavior discussed. Girlfriend verbalized understanding and stated no further questions. Shortly after phone call, patient started becoming more agitated again. Dr. Rich at bedside; verbal orders received for a precedex drip and ativan. See MAR for details.
[2021-07-23] MEDS: LORazepam 2 mg/mL INJ 1 mL IVP (23:20)
[2021-07-23] MEDS: dexmedeTOMIDine 0.9 % NaCL 400 MCG/100 ML PREMIX IV (23:35)
[2021-07-24] VITALS (25 sets, daily range): BP systolic 110–183; BP diastolic 60–118; PULSE 63–115; RESP 14–32; TEMP 36.4–37.7; O2SAT 91–96; BMI 34.0
[2021-07-24] MEDS: vancomycin 1,500 MG/300 ML PIGGYBACK 200 MG IV ×2 (00:50→09:19)
[2021-07-24] MEDS: LORazepam 2 mg/mL INJ 1 mL IVP (01:40)
[2021-07-24 03:36] LABS: Basophils % 0.4 %; Eosinophils # 0.2 10^3/uL (0.0-0.8); Eosinophils % 1.7 %; Hematocrit 43.3 % (42.0-52.0); Hemoglobin 14.3 g/dL (11.7-16.6); Lymphocytes # 2.4 10^3/uL (0.8-4.8); Lymphocytes % 24.3 %; Mean Corpuscular Hemoglobin 30.8 pg (28.0-34.0); Mean Corpuscular Volume 93.3 fl (80-94); Mean Platelet Volume 10.6 fL (7.4-10.4); Monocytes # 0.9 10^3/uL (0.2-0.9); Monocytes % 8.9 %; Neutrophils # 6.37 10^3/uL (1.8-7.7); Neutrophils % 64.5 %; Nucleated Red Blood Cells % 0 %; Platelet Count 261 10^3/cmm (130-400); Red Blood Count 4.64 10^6/uL (4.1-5.3); Red Cell Distribution Width 12.5 % (12.1-15.1); White Blood Count 9.9 10^3/uL (4.0-10.0)
[2021-07-24] MEDS: hyDRALAzine 20 mg/mL INJ 1 mL 10 MG IVP (03:38)
[2021-07-24 03:46] LABS: INR 1.01 (0.8-1.2)
[2021-07-24 03:56] LABS: Alanine Aminotransferase 25 U/L (0-41); Alkaline Phosphatase 59 IU/L (40-130); Anion Gap 14.7 (5-19); Aspartate Amino Transferase 26 U/L (0-40); Blood Urea Nitrogen 13 mg/dL (6-20); Carbon Dioxide 23 mmol/L (22-29); Chloride 109 mmol/L (98-107); Globulin 3.1 g/dL (1.3-4.6); Glomerular Filtration Rate 151.6 mL/min (90-130); Glucose 107 mg/dL (65-115); Magnesium 1.7 mg/dL (1.7-2.3); Osmolality Calculated 297 mOsm/kg (285-295); Potassium 3.7 mmol/L (3.5-5.1); Sodium 143 mmol/L (136-145); Total Bilirubin 0.5 mg/dL (0.15-1.2); Total Protein 7.1 g/dL (6.6-8.7)
--- NOTE | 2021-07-24 04:00 | PC.NURSE ---
Blood Pressure Patient's systolic BP ranging from 150-185. Dr. Rich notified and verbal order received for Hydralazine 10 mg Q 4 hours PRN for systolic BP >180, diastolic BP >100. Medication administered per AUG.
[2021-07-24] MEDS: dexmedeTOMIDine 0.9 % NaCL 400 MCG/100 ML PREMIX 25.98 MCG IV (04:12)
[2021-07-24] MEDS: pantoprazole 40 mg SDV IVP (05:30)
[2021-07-24] MEDS: enoxaparin 40 mg/0.4 mL Syringe SUBCUT (08:43)
[2021-07-24] MEDS: doxycycline 100 MG in sodium chloride 0.9% (plus) 100 ML IV (08:48)
[2021-07-24] MEDS: cefTRIAXone 2,000 MG in sodium chloride 0.9% (plus) 100 ML 100 MG IV ×2 (08:48→20:51)
[2021-07-24] MEDS: dexmedeTOMIDine 0.9 % NaCL 400 MCG/100 ML PREMIX 23.38 MCG IV (09:34)
--- NOTE | 2021-07-24 10:32 | PC.NURSE ---
PIV started to R upper arm this AM, tolerated well. Weaning precedex down per orders. Attempted to rouse pt, Pt did not rouse to verbal or simple physical stimuli. Will not attempt more aggressive stimuli to prevent repeat of last night's agitation. Will continue to wean sedation down and reattempt to wake pt slowly. VSS will monitor
--- NOTE | 2021-07-24 10:47 | PC.OT ---
OT EVALUATION HELD PATIENT IS CURRENTLY SEDATED DUE TO AGITATION. WILL ATTEMPT AGAIN TOMORROW.
--- NOTE | 2021-07-24 11:50 | PM.PN ---
Subjective Subjective: Overnight events noted, patient was started on Precedex, wrist restraints were used to secure safety of the patient and the nursing staff This morning he was heavily sedated on Precedex 1.1 Asked ICU nurse to titrate off Precedex so we can reevaluate him today We will discuss case with Dr. Ferrera CBC, BMP unremarkable, no febrile events Hemodynamically stable Significant other brought this to our attention that at home she has found opioids, benzodiazepines and ibuprofen, he has been taking hydrocodone 10 at home Vitals/I&O/Wt Last Vital Signs Temp 97.8 F 07/24/21 08:01 Pulse 67 07/24/21 10:00 Resp 32 H 07/24/21 10:00 BP 136/83 07/24/21 10:00 Pulse Ox 93 07/24/21 10:00 07/23/21 07/24/21 07/24/21 22:59 06:59 14:59 Intake Total 500 / 1346.667 481.445 / 1828.112 733.559 / 733.559 Output Total 1175 / 1575 850 / 2425 Balance -675 / -228.333 -368.555 / -596.888 733.559 / 733.559 Weight last 48 hrs Weight 104.689 kg Weight 103.918 kg Physical Exam Narrative: Patient is heavily sedated on Precedex Is saturating well on room air Hemodynamically stable Urinary Catheter Management: Leon: Cath Placed During This Visit: yes Reason for Continuing Indwelling Catheter: Accurate Measurement of Urinary Output in Critically Ill Patients Urinary Catheter Date of Insertion: 07/21/21 Urinary Catheter Time of Insertion: 23:40 Data : 07/25/21 03:21 07/25/21 03:21 Micro: Microbiology 07/22/21 14:18 Gram Stain - Final Cerebrospinal Fluid CSF Culture - Preliminary 07/20/21 03:41 Gram Stain - Final Sputum - Endotracheal Tube Aspirate Sputum Culture - Final 07/20/21 23:54 Urine Culture - Final Urine Catheterized A&P Assessment and plan (1) Abnormal urinalysis: Status: Acute (2) Choreoathetoid limb movements: Status: Acute (3) Postictal confusion: Status: Acute (4) Breakthrough seizure: Status: Acute (5) Lactic acidosis: Status: Acute (6) Leukocytosis: Status: Acute (7) NSTEMI (non-ST elevated myocardial infarction): Status: Acute (8) Acute encephalopathy: Status: Acute (9) Acute hypoxemic respiratory failure: Status: Acute (10) Narcotic overdose: Status: Acute Plan Patient was intubated for respiratory failure possibly related to opiate overdose at the time of admission He was successfully extubated the next day Since extubation he has been showing choreoathetoid movement of right arm Noticed febrile events Started ceftriaxone and vancomycin since then no febrile events CSF unremarkable, MRI head unremarkable Very heavily sedated today We will discuss case with Dr. 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
--- NOTE | 2021-07-24 11:59 | PC.NURSE ---
Sedation reduced per orders. Pt AAO to self only, disoriented to year by one year, and was unable to tell this nurse where he was. Will continue to monitor.
[2021-07-24] MEDS: metoprolol tartrate 25 mg Tablet PO ×2 (12:52→23:53)
--- NOTE | 2021-07-24 15:04 | PC.NURSE ---
Sedation turned off earlier, pt awakens easily. Oriented to self only, reoriented PRN. Pt is pleasant and was able to take meds without difficulty. Restraints removed. Will monitor.
--- NOTE | 2021-07-24 16:13 | PC.NURSE ---
Pt attempting to remove PIV's, asking to go home. Pt cussing at times. Dr. Ferrera in room with pt, VO to give zyprexa 10mg. Awaiting pharm to acknowledge order. IV's secured and gfDestinee, contacted to come and sit with pt.
--- NOTE | 2021-07-24 16:21 | PM.CONSULT ---
Providers/Reason For Consult Consulting Physician/Specialty*: Matteo Apodaca Reason for Consult*: Acute encephalopathy of unclear cause Requesting Physician: Matteo Apodaca Attending Physician: Janine Eden MD History of Present Illness History of Present Illness Jaquan Aguilar is a 36 year old male who was brought in unresponsive. EMS was called to the home for an alleged overdose. Doug says she walked in and found him unresponsive when she walked in at 9:45 pm. That day at 2 PM to 3 PM he was fine. He had been out to lunch for ribs. He was acting as always. She texted him throughout the day. He went to her parents house to get his blinker fixed. He was texting back and forth while doing a variety of things. He said that he was going to her parents and that she might not get through to him. She walked in and heard him snoring. He was hunched over the computer desk. There was a little blue pill and a half of a pill with the letter D. He gets his hands on whatever he can. She just found out that he has a severe addiction that she did not know about until now. She says he has basically getting xanax, oxycodone, anyything that will get him high. She says it has been a mixture of anything that he could get. Yesterday he was all sweet and loving and then became hostile and threatened to leave. He threatened to bust her chops. [place] says that [place]. He was threatening to leave when I walked in and refused to talk with me but when I helped him search for his cell phone he calm down and ask could I have a Xanax so I do not want to slit people's throats. MRI of the brain was completed yesterday and is normal. Spinal fluid exam from 07/22 showed three white cells, no red cells, glucose 64 and protein 27. Review of Systems Narrative: He is not complaining of pain. He has had choreoathetoid movements of the right upper extremity off and on throughout his stay but not currently. He has not been febrile. He suffers from asthma and takes an inhaler at home. He is on medication for gout and hypertension. Medications/Allergies Home Medications Medication Instructions Recorded Confirmed Last Taken Type albuterol sulfate 90 mcg/actuation 2 puff INHALATION Q6H PRN 07/21/21 07/21/21 Unknown History aerosol inhaler allopurinol 300 mg tablet 300 mg PO DAILY 07/21/21 07/21/21 Unknown History alprazolam 0.25 mg tablet 0.25 mg PO BID PRN 07/21/21 07/21/21 Unknown History metoprolol tartrate 100 mg tablet 100 mg PO Q8H 07/21/21 07/21/21 Unknown History naproxen 500 mg tablet 500 mg PO BID PRN 07/21/21 07/21/21 Unknown History oxybutynin chloride 5 mg tablet 10 mg PO BID 07/21/21 07/21/21 Unknown History Allergies Allergy/AdvReac Type Severity Reaction Status Date / Time Penicillins Allergy ALGY-Hives Verified 07/22/21 19:55 Current Medications Generic Name Dose Route Start Last Admin Trade Name Freq PRN Reason Stop Dose Admin Albuterol/Ipratropium 3 ml 07/21/21 06:48 07/21/21 20:19 Ipratropium-Albuterol 3 Ml Neb INHALATION 3 ml Q6H.RESPIRATORY PRN Administration WHEEZING Allopurinol 300 mg 07/22/21 11:55 07/24/21 09:44 Allopurinol 300 Mg Tablet PO Not Given DAILY KIERSTEN Aspirin 81 mg 07/21/21 09:00 07/24/21 09:44 Aspirin 81 Mg Ec Tablet PO Not Given DAILY KIERSTEN Atorvastatin Calcium 40 mg 07/21/21 21:00 07/23/21 23:25 Atorvastatin 40 Mg Tablet PO Not Given BEDTIME KIERSTEN Enoxaparin Sodium 40 mg 07/24/21 09:00 07/24/21 08:43 Enoxaparin 40 Mg/0.4 Ml Syringe SUBCUT 40 mg Q24H KIERSTEN Administration Folic Acid 1 mg 07/22/21 09:00 07/24/21 09:44 Folic Acid 1 Mg Tablet PO Not Given DAILY KIERSTEN Hydralazine HCl 10 mg 07/24/21 02:11 07/24/21 03:38 Hydralazine 20 Mg/Ml Inj 1 Ml IVP 10 mg Q4H PRN Administration HYPERTENSION Propofol 1,000 mg in 100 mls @ 0 mls/hr 07/20/21 23:30 07/22/21 09:27 Diprivan IV Infused .Q0M KIERSTEN Titration Protocol Per Protocol Ceftriaxone Sodium 2,000 mg/ 100 mls @ 100 mls/hr 07/22/21 08:15 07/24/21 09:45 Sodium Chloride IV Infused Q12H KIERSTEN Infusion Protocol Levetiracetam 1,000 mg/ Sodium 110 mls @ 440 mls/hr 07/22/21 20:00 07/24/21 08:52 Chloride IV Infused Q12H KIERSTEN Infusion dexmedeTOMIDine 0.9 % NaCL 400 mcg in 100 mls @ 0 mls/hr 07/23/21 23:30 07/24/21 12:26 Precedex IV 0 mcg/kg/hr .Q0M KIERSTEN 0 mls/hr Titration Protocol Per Protocol Lorazepam 2 mg 07/23/21 21:50 07/24/21 01:40 Lorazepam 2 Mg/Ml Inj 1 Ml IVP 2 mg Q2H PRN Administration AGITATION Metoprolol Tartrate 25 mg 07/24/21 12:30 07/24/21 12:52 Metoprolol Tartrate 25 Mg Tablet PO 25 mg Q12H KIERSTEN Administration Pantoprazole Sodium 40 mg 07/21/21 05:49 07/24/21 05:30 Pantoprazole 40 Mg Sdv IVP 40 mg Q24H KIERSTEN Administration Thiamine HCl 100 mg 07/22/21 09:00 07/24/21 08:42 Thiamine 100 Mg/Ml Sdv IVP 100 mg DAILY KIERSTEN Administration Vitals/I&O/Wt Last Vital Signs Temp 97.6 F 07/24/21 12:00 Pulse 72 07/24/21 15:01 Resp 18 07/24/21 15:01 BP 110/78 07/24/21 16:01 Pulse Ox 93 07/24/21 15:01 07/24/21 07/24/21 07/24/21 06:59 14:59 22:59 Intake Total 481.445 / 1828.112 986.808 / 986.808 Output Total 850 / 2425 Balance -368.555 / -596.888 986.808 / 986.808 Weight last 48 hrs Weight 230 lb 12.8 oz Weight 229 lb 1.6 oz Physical Exam Narrative: GENERAL: The patient was well-nourished with a healthy appearance. He had his glasses on. He was talking with me lying in the ICU bed quietly but informing me that he would be leaving. MENTAL STATUS: He could not tell me what state he was in but says [place]. He wanted me to search for his cell phone and became more agreeable when I agreed to check all of the cabinets and drawers looking for his cell phone. No difficulty following a complex command. He was moderately agitated initially and said he was leaving, but purposeful enough to ask for his drug of choice. CRANIAL NERVES: Visual ibarra were full to threat. Facial movements symmetric. Tongue midline in the mouth. No dysarthria. MOTOR: He has a high amplitude myoclonic tremor in both upper extremities. He could keep the arms extended without drift. He complained of pain in the right hip when extending the right leg but he could keep it elevated for 5 seconds and the same was true on the left. SENSATION: He withdrew from touch in all four extremities. COORDINATION: He was not cooperative but there were no specific cerebellar findings. He can keep his legs extended without tremor. Stance and gait not tested. DEEP TENDON REFLEXES: 2/4 throughout. Toes HEENT: Normocephalic without dysmorphic features. Conjunctivae were not injected and sclerae were nonicteric. NECK: Carotid upstroke was strong bilaterally without bruits. The thyroid was not enlarged and there were no palpable lymph nodes. CHEST: Clear to auscultation. CARDIOVASCULAR: The heart sounds were normal without murmur or gallop. Regular rate and rhythm. EXTREMITIES: He complained of pain in the right hip with the right leg extended Urinary Catheter Management: Leon: Cath Placed During This Visit: yes Reason for Continuing Indwelling Catheter: Accurate Measurement of Urinary Output in Critically Ill Patients Urinary Catheter Date of Insertion: 07/21/21 Urinary Catheter Time of Insertion: 23:40 Data : 07/24/21 03:20 07/24/21 03:20 Other Labs: MRI brain was unremarkable. Cerebrospinal fluid showing three white cells, normal glucose and protein. Micro: Microbiology 07/22/21 14:18 Gram Stain - Final Cerebrospinal Fluid CSF Culture - Preliminary 07/20/21 03:41 Gram Stain - Final Sputum - Endotracheal Tube Aspirate Sputum Culture - Final 07/20/21 23:54 Urine Culture - Final Urine Catheterized A&P Assessment and plan (1) Acute encephalopathy: Status: Acute (2) Benzodiazepine overdose: This gentleman presented with an acute encephalopathy initially of unclear origin. EMS found him with a pulse oximeter of 51% on room air and he was not responsive. The role of drugs in his life was minimized by his family as they were not aware of the degree of his addiction or consumption of benzodiazepines and narcotics. He was intubated on arrival because of hypoxia and as he was coming off of sedation he was noted to have choreoathetoid movements in his right arm which were of concern for seizure and possible postictal state. 2 days ago he was started on Keppra. The family was pretty sure that the patient was not abusing drugs as he works long hours but in the meantime, over the last several days, his fianc?e has learned that he has been buying any variety of opioids and benzodiazepines that he could obtain. He has been so agitated here that we have been having to keep him sedated. He is not showing any signs of seizure activity on my exam. He had a seizure remotely several years ago but I think we should presume that he is not having seizures now and get his anticonvulsants out of the picture. Some of his agitation today could be from Keppra. I would maintain him on benzodiazepines until you can get psychiatry involved and gradually taper him off of benzodiazepines. He may require some small doses of opioids as well as nobody has any idea how much he has been consuming because he is buying it off the street. Status: Acute (3) Drug withdrawal delirium: Status: Acute Consult Attestations Medical Necessity Statement: Profoundly encephalopathic 36-year-old who was hypoxic on arrival from unknown cause now definitively determined to be a drug overdose. He remains agitated and profoundly encephalopathic. Time Spent in Patient Care: 75 Coding Level of Care Code Acute [facility] Diagnoses Acute encephalopathy G93.40 Benzodiazepine overdose T42.4X1A Drug withdrawal delirium F19.231
[2021-07-24] MEDS: ALPRAZolam 0.5 mg Tablet 1 MG PO (16:37)
--- NOTE | 2021-07-24 18:23 | PC.NURSE ---
Shift Note Frequent safety and comfort rounds continue. Orders and/or nursing care completed as indicated. Patient monitored for response to intervention and treatment(s). Education provided includes treatment plan, medications. Pt verbalizes understanding but is often confused. Requires frequent reorienting. Appears paranoid at times. Has been nonviolent but mentioned slicing everyone here's throat earlier this afternoon. MD notified. No other issues noted. Will continue to monitor.
[2021-07-24] MEDS: atorvastatin 40 mg Tablet PO (20:52)
[2021-07-25 00:19] VITALS: BP 148/98; PULSE 93; RESP 18; TEMP 37.2; O2SAT 94
[2021-07-25 03:32] LABS: Basophils % 0.3 %; Eosinophils # 0.2 10^3/uL (0.0-0.8); Eosinophils % 2.1 %; Hematocrit 44.8 % (42.0-52.0); Hemoglobin 14.5 g/dL (11.7-16.6); Lymphocytes # 2.6 10^3/uL (0.8-4.8); Mean Corpuscular HGB Conc 32.4 g/dL (30.0-36.0); Mean Corpuscular Hemoglobin 30.9 pg (28.0-34.0); Mean Corpuscular Volume 95.5 fl (80-94); Mean Platelet Volume 10.3 fL (7.4-10.4); Monocytes # 0.9 10^3/uL (0.2-0.9); Monocytes % 8.4 %; Neutrophils # 7.01 10^3/uL (1.8-7.7); Neutrophils % 65.1 %; Nucleated Red Blood Cells % 0 %; Platelet Count 266 10^3/cmm (130-400); Red Blood Count 4.69 10^6/uL (4.1-5.3); Red Cell Distribution Width 12.5 % (12.1-15.1); White Blood Count 10.8 10^3/uL (4.0-10.0)
[2021-07-25 03:54] LABS: Blood Urea Nitrogen 15 mg/dL (6-20); Calcium 9.8 mg/dL (8.5-10.5); Carbon Dioxide 19 mmol/L (22-29); Chloride 108 mmol/L (98-107); Glomerular Filtration Rate 151.6 mL/min (90-130); Glucose 85 mg/dL (65-115); Osmolality Calculated 292 mOsm/kg (285-295); Sodium 141 mmol/L (136-145)
[2021-07-25 03:59] LABS: Anion Gap 17.4 (5-19); Potassium 3.4 mmol/L (3.5-5.1)
[2021-07-25 05:00] VITALS: BP 176/100; PULSE 95; RESP 20; TEMP 36.8; O2SAT 98
[2021-07-25] MEDS: pantoprazole 40 mg SDV IVP (05:08)
[2021-07-25] MEDS: LORazepam 2 mg/mL INJ 1 mL IVP (05:19)
[2021-07-25 07:43] VITALS: PULSE 103; RESP 18; O2SAT 96
[2021-07-25] MEDS: cefTRIAXone 2,000 MG in sodium chloride 0.9% (plus) 100 ML 100 MG IV (09:09)
[2021-07-25] MEDS: allopurinol 300 mg Tablet PO (09:09)
[2021-07-25] MEDS: enoxaparin 40 mg/0.4 mL Syringe SUBCUT (09:09)
[2021-07-25] MEDS: aspirin 81 mg EC Tablet PO (09:09)
[2021-07-25] MEDS: folic acid 1 mg Tablet PO (09:09)
[2021-07-25] MEDS: metoprolol tartrate 25 mg Tablet PO (12:30)
--- NOTE | 2021-07-25 14:55 | PC.NURSE ---
patient and family given discharge instructions and verbalized understanding of instructions. patient taken to private vehicle via wheelchair by staff. patient's meds delivered to room.
[2021-07-25 14:56] VITALS: PULSE 103; RESP 18; O2SAT 96
--- NOTE | 2021-07-25 17:02 | PM.DCS ---
Discharge Providers Date of Admission: 07/21/21 02:34 Date of Discharge: July 25, 2021 Attending Provider at Admission: Maikol Redmond MD Attending Provider at Discharge: Janine Eden MD Diagnoses at Discharge Discharge Diagnosis (1) Abnormal urinalysis: Status: Acute (2) Choreoathetoid limb movements: Status: Acute (3) Postictal confusion: Status: Acute (4) Breakthrough seizure: Status: Acute (5) Lactic acidosis: Status: Acute (6) Leukocytosis: Status: Acute (7) NSTEMI (non-ST elevated myocardial infarction): Status: Acute (8) Acute encephalopathy: Status: Acute (9) Acute hypoxemic respiratory failure: Status: Acute (10) Narcotic overdose: Status: Acute Reason for Visit Reason for Visit: od Hospital Course Hospital Course 36-year-old male who was intubated in the ER secondary to narcotic overdose. He was intubated in the ER on 07/21, when I evaluated him next day after sedation vacation and weaning trial he was successfully extubated to room air on 07/22. As soon as we extubated him he started showing choreoathetoid movement of right arm that prompted me to start antiepileptic such as Keppra. After Keppra his anxiety and purposeless movements were not improving so I decided to add Lamictal. That improved his abnormal movements of right arm however overnight he became very agitated started spiking fever, I added vancomycin and ceftriaxone with doxycycline as empirical coverage for meningitis. MRI head unremarkable, MRI head was obtained because of his scanning speech which was detected after extubation. CSF studies unremarkable. Dr. Ferrera was consulted after above-mentioned work-up. She thinks his symptoms are related to benzodiazepine withdrawal and recommended against continuation of antiepileptics. Antimicrobials were discontinued. Of note, after discontinuation of Keppra and Lamictal his mentation did improve, literature does support Keppra induced encephalopathy and agitation. No signs of skin rash after starting Lamictal. I discussed this case with psychiatrist Dr. Everett who recommended Librium taper. Patient will get 25 mg of Librium 3 times a day for 2 days, 2 times a day for next 2 days, 1 tablet for 2 days and then discontinue. This was conveyed clearly to his significant other. Significant other found out that he was buying benzodiazepines, opioids off the street from his friends. Referral given for [facility] PT recommended home exercise program. Patient twisted his ankle at the time of discharge when he was try to get out of the bathroom, I did evaluate his left ankle no signs of fracture, there is mild swelling, asked him to use ankle immobilizer. Physical Exam Narrative: Patient was awake and alert No active neurological deficit Speech is normal Nonfocal neuro exam Left ankle is swollen however no signs of fracture Awake and alert EOMI, PERRLA GCS 15 S1, S2 No cerebral or cerebellar signs Abdomen soft Multiple skin tattoos Well-hydrated Saturating well on room air Urinary Catheter Management: Leon: Cath Placed During This Visit: yes, but has since been removed by the nurse Reason for Continuing Indwelling Catheter: Decision to DC Catheter Urinary Catheter Date of Insertion: 07/21/21 Urinary Catheter Time of Insertion: 23:40 Date Urinary Catheter Removed: 07/25/21 Time Urinary Catheter Discontinued: 09:34 Discharge Data Studies Completed and Pending Completed Studies During Hospitalization Category Date Time Status CT cervical spin wo con* [id number] Urgent Cat Scan 07/20/21 23:[address] head wo con* [id number] Urgent Cat Scan 07/20/21 23:22 Completed FL guided lumbarpunc dx* [id number] Routine Exams 07/23/21 04:00 Completed XR chest 1V portable [id number] Urgent Exams 07/20/21 23:22 Completed MR head wo con* [id number] Routine MRI 07/23/21 05:00 Completed CV. echo complete* [id number] Routine Ultrasound 07/22/21 06:00 Completed CV. echo limited [id number] Routine Ultrasound 07/23/21 17:42 Completed Pending at discharge Category Date Time Status Blood Culture Stat Lab 07/21/21 09:40 Results CSF Culture & Gram Stain Routine Lab 07/22/21 14:18 Results Lymes Disease Antibodies CSF Routine Lab 07/22/21 14:18 Received Oligoclonal Bands IGG, CSF Routine Lab 07/22/21 10:32 Received Urinalysis Routine Lab 07/21/21 05:49 Ordered Radiology Impressions Cervical Spine CT 07/20/21 23:22 IMPRESSION: No acute abnormality of the cervical spine demonstrated. Chest X-Ray 07/20/21 23:22 IMPRESSION: 1. There is an endotracheal tube present, with distal tip 3 cm above the yaz. 2. There is an enteric tube present with distal portion in the stomach. 3. Low lung volumes bilaterally. Nonspecific ground-glass infiltrates noted bilaterally, left worse than right. Head CT 07/20/21 23:22 IMPRESSION: No acute intracranial abnormality demonstrated. Lumbar Puncture Fluoroscopy 07/23/21 04:00 IMPRESSION: Fluoroscopically guided lumbar puncture. No immediate complications Head MRI 07/23/21 05:00 IMPRESSION: 1. No acute infarct or chronic microvascular ischemic disease. 2. No volume loss or atrophy. No hemorrhage. Laboratory Results WBC 10.8 10^3/uL (4.0-10.0) H 07/25/21 03:21 RBC 4.69 10^6/uL (4.1-5.3) 07/25/21 03:21 Hgb 14.5 g/dL (11.7-16.6) 07/25/21 03:21 Hct 44.8 % (42.0-52.0) 07/25/21 03:21 MCV 95.5 fl (80-94) H 07/25/21 03:21 MCH 30.9 pg (28.0-34.0) 07/25/21 03:21 MCHC 32.4 g/dL (30.0-36.0) 07/25/21 03:21 RDW 12.5 % (12.1-15.1) 07/25/21 03:21 Plt Count 266 10^3/cmm (130-400) 07/25/21 03:21 MPV 10.3 fL (7.4-10.4) 07/25/21 03:21 Neut % (Auto) 65.1 % 07/25/21 03:21 Lymph % (Auto) 24.0 % 07/25/21 03:21 [place] % (Auto) 8.4 % 07/25/21 03:21 Eos % (Auto) 2.1 % 07/25/21 03:21 Baso % (Auto) 0.3 % 07/25/21 03:21 Neut # (Auto) 7.01 10^3/uL (1.8-7.7) 07/25/21 03:21 Lymph # (Auto) 2.6 10^3/uL (0.8-4.8) 07/25/21 03:21 [place] # (Auto) 0.9 10^3/uL (0.2-0.9) 07/25/21 03:21 Eos # (Auto) 0.2 10^3/uL (0.0-0.8) 07/25/21 03:21 Baso # (Auto) 0.0 10^3/uL (0.0-0.1) 07/25/21 03:21 Nucleated RBC % (auto) 0 % 07/25/21 03:21 Nucleated RBCs # 0.0 /100WBC 07/25/21 03:21 ESR 13 mm/hr (0-10) H 07/20/21 23:53 PT 13.60 SECONDS (12.1-14.9) 07/24/21 03:20 INR 1.01 (0.8-1.2) 07/24/21 03:20 D-Dimer 1.48 ug/mIFEU (0-0.59) H 07/22/21 03:45 Specimen Type Arterial 07/21/21 06:22 Sample Site Radial, right 07/21/21 06:22 ABG pH 7.41 (7.35-7.45) 07/21/21 06:22 ABG pCO2 42.3 mmHg (35-45) 07/21/21 06:22 ABG pO2 125.0 mmHg (80.0-100.0) H 07/21/21 06:22 ABG HCO3 26.8 mmol/L (22-26) H 07/21/21 06:22 ABG Base Excess 1.8 mmol/L (-2.0-2.0) 07/21/21 06:22 Rudy Test Pos 07/21/21 06:22 Hematocrit 41.1 % (42-52) L 07/21/21 06:22 O2 Delivery Device Vent 07/21/21 06:22 FiO2 60.0 % 07/21/21 06:22 Tidal Volume 0.50 07/21/21 06:22 PEEP 8.0 cmH20 07/21/21 06:22 Dispatcher Motor Vehicle ID Jesse 07/21/21 06:22 Sodium 141 mmol/L (136-145) 07/25/21 03:21 Potassium 3.4 mmol/L (3.5-5.1) L 07/25/21 03:21 Chloride 108 mmol/L (98-107) H 07/25/21 03:21 Carbon Dioxide 19 mmol/L (22-29) L 07/25/21 03:21 Anion Gap 17.4 (5-19) 07/25/21 03:21 BUN 15 mg/dL (6-20) 07/25/21 03:21 Creatinine 0.6 mg/dL (0.7-1.2) L 07/25/21 03:21 GFR Calculation 151.6 mL/min (90-130) H 07/25/21 03:21 Glucose 85 mg/dL (65-115) 07/25/21 03:21 POC Glucose 182 mg/dL (70-110) H 07/22/21 00:31 Calculated Osmolality 292 mOsm/kg (285-295) 07/25/21 03:21 Lactic Acid 1.1 mmol/L (0.5-2.2) 07/22/21 03:45 Lactate 1.0 mmol/L (0.5-2.2) 07/21/21 09:40 Calcium 9.8 mg/dL (8.5-10.5) 07/25/21 03:21 Phosphorus 3.0 mg/dL (2.5-4.5) 07/24/21 03:20 Magnesium 1.7 mg/dL (1.7-2.3) 07/24/21 03:20 Total Bilirubin 0.5 mg/dL (0.15-1.2) 07/24/21 03:20 AST 26 U/L (0-40) 07/24/21 03:20 ALT 25 U/L (0-41) 07/24/21 03:20 Alkaline Phosphatase 59 IU/L (40-130) 07/24/21 03:20 Creatine Kinase 431 U/L (39-308) H* 07/23/21 03:30 Troponin T Baseline 75 ng/L (0-15) H 07/20/21 23:28 Troponin T 120 Minute 135.2 ng/L (0-15) H 07/21/21 01:20 Delta Troponin T 60.2 ABS# (0-10) H* 07/21/21 01:20 Troponin T Hi Sens 6Hr 49.25 ng/L (0-15) H 07/21/21 09:40 Troponin T Hi Sens 6Hr Delta -25.5 ng/L (0-12) L 07/21/21 09:40 C-Reactive Protein 41.7 mg/L (0.0-4.9) H 07/20/21 23:53 NT-Pro-B Natriuret Pep 200 pg/mL (0-125) H 07/22/21 03:45 Total Protein 7.1 g/dL (6.6-8.7) 07/24/21 03:20 Albumin 4.0 g/dL (3.5-5.2) 07/24/21 03:20 Globulin 3.1 g/dL (1.3-4.6) 07/24/21 03:20 Procalcitonin 0.60 ng/mL (0-0.5) H 07/23/21 03:30 TSH 0.21 uIU/mL (0.27-4.20) L 07/22/21 03:45 Free T4 0.95 ng/dL (0.82-1.77) 07/22/21 10:32 Prolactin 28.84 ng/mL (4.0-15.2) H 07/21/21 09:40 Urine Color Yellow (Yellow) 07/20/21 23:54 Urine Appearance Clear (CLEAR) 07/20/21 23:54 Urine pH 6 (5-7) 07/20/21 23:54 Ur Specific [place] 1.010 (1.005-1.030) 07/20/21 23:54 Urine Protein 2+ (Negative) H 07/20/21 23:54 Urine Glucose (UA) 2+ (Normal) H 07/20/21 23:54 Urine Ketones Negative (Negative) 07/20/21 23:54 Urine Blood 2+ (Negative) H 07/20/21 23:54 Urine Nitrate Negative (Negative) 07/20/21 23:54 Urine Bilirubin Neg (Negative) 07/20/21 23:54 Urine Urobilinogen Norm mg/dL (Negative) 07/20/21 23:54 Ur Leukocyte Esterase Negative (Negative) 07/20/21 23:54 Urine RBC 10-15 /hpf (0-2) H 07/20/21 23:54 Urine WBC 15-25 /hpf (0-5) H 07/20/21 23:54 Ur Squamous Epith Cells 0-4 /hpf (0-5) H 07/20/21 23:54 Amorphous Sediment 2+ /hpf 07/20/21 23:54 Urine Bacteria 1+ /hpf (NONE) H 07/20/21 23:54 Hyaline Casts 0-4 /lpf H 07/20/21 23:54 Coarse Granular Casts 0-4 /lpf H 07/20/21 23:54 Urine Mucus 1+ /hpf 07/20/21 23:54 CSF Appearance Clear (CLEAR) 07/22/21 14:18 CSF Color Colorless (COLORLESS) 07/22/21 14:18 CSF WBC 3 /uL (0-5) 07/22/21 14:18 CSF RBC 0 10^3/uL (0-0) 07/22/21 14:18 CSF Mononuclear # Auto 0.003 10^3/uL (50-90) L 07/22/21 14:18 CSF Mononuclear WBCs % 100 % (50-90) H 07/22/21 14:18 CSF Polynuclear WBCs # 0.000 10^3/uL (0-10) 07/22/21 14:18 CSF Polynuclear WBCs % 0 % (0-10) 07/22/21 14:18 CSF Glucose 64 mg/dL (40-70) 07/22/21 14:18 CSF Total Protein 27 mg/dL (15-45) 07/22/21 14:18 Vancomycin Trough 12.6 ug/mL (10-15) 07/23/21 08:24 Salicylates < 0.3 mg/dL (3-10) L 07/20/21 23:53 Urine Opiates Screen Positive ng/mL (Negative) H 07/20/21 23:54 Acetaminophen < 5.0 ug/mL (10-30) L 07/20/21 23:53 Ur Barbiturates Screen Negative ng/mL (Negative) 07/20/21 23:54 Ur Phencyclidine Scrn Negative ng/mL (Negative) 07/20/21 23:54 Ur Amphetamines Screen Negative ng/mL (Negative) 07/20/21 23:54 U Benzodiazepines Scrn Positive ng/mL (Negative) H 07/20/21 23:54 Urine Cocaine Screen Negative ng/mL (Negative) 07/20/21 23:54 U Marijuana (THC) Screen Negative ng/mL (Negative) 07/20/21 23:54 Ethyl Alcohol < 10 mg/dL (0-10) 07/20/21 23:53 Serum Ketones Negative (Negative) 07/20/21 23:53 Coronavirus 229E (PCR) Not detected (NOT DETECT) 07/21/21 00:03 SARS-CoV-2 (PCR) Not detected (NOT DETECT) 07/21/21 00:03 Vitals Last Vital Signs Temp 98.3 F 07/25/21 05:00 Pulse 103 H 07/25/21 14:56 Resp 18 07/25/21 14:56 BP 176/100 07/25/21 05:00 Pulse Ox 96 07/25/21 14:56 Discharge Plan Discharge Patient Disposition: Home Condition: Stable Prescriptions: New chlordiazepoxide HCl 25 mg capsule 25 mg PO DIRECTED Qty: 12 0RF Rx Instructions: 3 times a day for 2 days then twice daily for 2 days and then once daily for 2 days and then stop Continued metoprolol tartrate 100 mg tablet 100 mg PO Q8H 0RF allopurinol 300 mg tablet 300 mg PO DAILY 0RF albuterol sulfate 90 mcg/actuation HFA aerosol inhaler 2 puff INHALATION Q6H PRN (Reason: Shortness Of Breath) 0RF oxybutynin chloride 5 mg tablet 10 mg PO BID 0RF naproxen 500 mg tablet 500 mg PO BID PRN (Reason: Pain) 0RF Discontinued alprazolam 0.25 mg tablet 0.25 mg PO BID PRN (Reason: Anxiety) 0RF Discharge Orders: Discharge Order (Routine); Ordered 07/25/21 Ordered By: Janine Eden Referrals: Patricia Ferrera MD [Physician] - 08/13/21 8:00 am Discharge Diet: Cardiac Discharge Activity: Increase activity as tolerated and As per PT/OT instructions Patient Instructions: Chlordiazepoxide (By mouth), Adult Overdose (ED), Prescription Opioid Overdose (IP), Opioid Safety Discharge Attestations Time Spent in Discharge Care*: less than 30 min Quality Metrics Clinical Quality Measures [ No reported AMI, CVA or VTE this stay] Coding Level of Care Code Acute Chg FW DC note Diagnoses Abnormal urinalysis R82.90 Choreoathetoid limb movements G25.5 Postictal confusion F05 Breakthrough seizure G40.919 Lactic acidosis E87.2 Leukocytosis D72.829 NSTEMI (non-ST elevated myocardial infarction) I21.4 Acute encephalopathy G93.40 Acute hypoxemic respiratory failure J96.01 Narcotic overdose T40.086J
[2021-07-27 19:17] LABS: Lyme Disease AB (IGG),IBL NO BANDS DETECTED; Lyme Disease AB (IGM), IBL NO BANDS DETECTED
== END 2021-07-25 14:57 | disposition home or self-care (01) | DRG 917 ==
LOC: ER 07-21 02:32 → ICU 07-21 03:02 → MEDSURG 07-25 00:18
PROVIDERS: Emergency Medicine; Admitting Provider Family Medicine; Emergency Provider Emergency Medicine; Visit Provider Internal Medicine
DX: T42.4X4A Poisoning by benzodiazepines, undetermined, initial encounter (principal); J96.01 Acute respiratory failure with hypoxia; I21.4 Non-ST elevation (NSTEMI) myocardial infarction; G93.40 Encephalopathy, unspecified; E87.2 Acidosis; F19.231 Other psychoactive substance dependence with withdrawal delirium; T40.604A Poisoning by unspecified narcotics, undetermined, initial encounter; R56.9 Unspecified convulsions; I10 Essential (primary) hypertension; M10.9 Gout, unspecified; J45.909 Unspecified asthma, uncomplicated; Z79.51 Long term (current) use of inhaled steroids
CPT/HCPCS: 31500; 36415; 36416; 36600; 51702; 62328; 70450; 70551; 71045; 72125; 80048; 80053; 80202; 80306; 80307; 80500; 81001; 82009; 82550; 82803; 82945; 82962; 83605; 83735; 83880; 83916; 84100; 84145; 84146; 84157; 84439; 84443; 84484; 85025; 85378; 85610; 85651; 86140; 86617; 87040; 87070; 87075; 87086; 87205; 87635; 89050; 92523; 92610; 93005; 93306; 93308; 94002; 94003; 94640; 94664; 94799; 96365; 96366; 96367; 96372; 96375; 97110; 97161; 97165; 99291; 99292; A4570; C9113; J0330; J0360; J0696; J1630; J1650; J1940; J1953; J2060; J2250; J2310; J2543; J2704; J2930; J3010; J3370; J3411; J3486; J3490; J7030; J7050